=== PATIENT | female | born 1945 | race Caucasian/White ===

== ENCOUNTER 2016-06-07 05:19 | Inpatient (IN) | payer OTHER ==
[2016-05-29 14:55] LABS: % IMMATURE GRANULYOCYTES 0.3 % (0.0-1.1); ABSOLUTE IMMATURE GRANULOCYTES 0.02 10^3/uL (0.00-0.10); ADD DIFF? NO; ADD MORPH? NO; ADD SCAN? NO; ATYPICAL LYMPHOCYTE FLAG 0 (0-99); FRAGMENT RBC FLAG 20 (0-99); HEMATOCRIT 37.4 % (38.0-47.0); HEMOGLOBIN 11.5 g/dL (12.6-16.3); LEFT SHIFT FLG 0 (0-99); LIPEMIA HEMOLYSIS FLAG 80 (0-99); MEAN CELL HEMOGLOBIN 24.8 pg (27.9-34.1); MEAN CELL HEMOGLOBIN CONCENTR. 30.7 g/dL (32.4-36.7); MEAN CELL VOLUME 80.8 fL (81.5-99.8); MEAN PLATELET VOLUME 10.3 fL (8.7-11.7); PLATELET CLUMPS FLAG 0 (0-99); PLATELET COUNT 216 10^3/uL (150-400); RED BLOOD CELL COUNT 4.63 10^6/uL (4.18-5.33); RED CELL DISTRIBUTION WIDTH 19.8 % (11.5-15.2)
[2016-05-29 15:20] LABS: ANION GAP 12 mEq/L (8-16); CARBON DIOXIDE 24 mEq/l (22-31); CHLORIDE 108 mEq/L (97-110); CREATININE 0.8 mg/dL (0.6-1.0); GLOMERULAR FILTRATION RATE > 60; GLUCOSE 112 mg/dL (70-100); POTASSIUM 3.8 mEq/L (3.5-5.2); SODIUM 144 mEq/L (134-144)
[2016-06-07] MEDS ORDERED: ROPI/epiNEPH/KETOROLAC JOINT COCKTAIL IU ONE (06:00)
[2016-06-07] MEDS ORDERED: CHLORHEXIDINE GLUC HIBICLENS 118 ML BTL TP ONE (06:00)
[2016-06-07] MEDS ORDERED: TRANEXAMIC ACID 1,000 MG in NS 50 ML IRR ONE (06:00)
[2016-06-07] MEDS ORDERED: FAMOTIDINE 20 MG TAB PO ONE (06:00)
[2016-06-07] MEDS ORDERED: CEFAZOLIN 2 GM/DEXTR 100 ML IV ONE (06:00)
[2016-06-07] MEDS ORDERED: ACETAMINOPHEN 325 MG TAB PO ONE (06:00)
[2016-06-07] MEDS ORDERED: DEXAMETHASONE 4 MG/ML VIAL IVP ONE (06:00)
[2016-06-07] MEDS ORDERED: LIDOCAINE 1% 5 ML SDV ONE (06:27)
[2016-06-07] MEDS ORDERED: ceFAZolin 1 GM/5 ML SYR ONE (06:49)
[2016-06-07] MEDS ORDERED: LR 1,000 ML IV ONE (07:01)
[2016-06-07] MEDS ORDERED: LIDOCAINE 1% 5 ML SDV ID PRN (07:01)
[2016-06-07] MEDS ORDERED: MIDAZOLAM 2 MG/2 ML VIAL ONE (07:07)
[2016-06-07] MEDS ORDERED: PROPOFOL 200 MG/20 ML VIAL ONE (07:10)
[2016-06-07] MEDS ORDERED: LIDOCAINE 2% 5 ML SDV ONE (07:11)
[2016-06-07] MEDS ORDERED: ROCURONIUM 50 MG/5 ML VIAL ONE (07:11)
[2016-06-07] MEDS ORDERED: HYDROmorphONE/DILAUDID 2 MG/ML SYR ONE (07:13)
[2016-06-07] MEDS ORDERED: hydrALAZINE 20 MG/ML VIAL ONE (08:09)
[2016-06-07] MEDS ORDERED: epHEDrine SULFATE 10 MG/ML SYR ONE (08:29)
[2016-06-07] MEDS ORDERED: PHENYLEPHRINE HCL 100 MCG/ML SYR ONE (08:46)
[2016-06-07] MEDS ORDERED: fentaNYL 100 MCG/2 ML INJ ONE (09:40)
[2016-06-07] MEDS ORDERED: METOCLOPRAMIDE 10 MG/2 ML VIAL ONE (09:41)
[2016-06-07] MEDS ORDERED: PROMETHAZINE HCL 25 MG/ML INJ IVP PRN (09:42)
[2016-06-07] MEDS ORDERED: METOCLOPRAMIDE 10 MG/2 ML VIAL IVP PRN (09:42)
[2016-06-07] MEDS ORDERED: ONDANSETRON 4 MG/2 ML VIAL IVP PRN (09:42)
[2016-06-07] MEDS ORDERED: BISACODYL 10 MG SUPP PR PRN (09:42)
[2016-06-07] MEDS ORDERED: MAGNESIUM HYDROXIDE 30 ML UDCUP PO PRN (09:42)
[2016-06-07] MEDS ORDERED: TEMAZEPAM 15 MG CAP PO PRN (09:42)
[2016-06-07] MEDS ORDERED: LACTULOSE 20 GM/30 ML UDCUP PO PRN (09:42)
[2016-06-07] MEDS ORDERED: PROMETHAZINE HCL 25 MG SUPPR PR PRN (09:42)
[2016-06-07] MEDS ORDERED: DIPHENOXYLATE/ATROPINE LOMOTIL 1 TAB PO PRN (09:42)
[2016-06-07] MEDS ORDERED: PHARMACY PAIN CONSULT 1 EA MISC PRN (09:42)
[2016-06-07] MEDS ORDERED: HYDROmorphONE/DILAUDID 1 MG/ML SYR ONE ×4 (09:50→11:23)
[2016-06-07] MEDS ORDERED: ONDANSETRON 4 MG/2 ML VIAL ONE (09:51)
[2016-06-07] MEDS ORDERED: OXYCODONE/APAP 5/325 TAB PO PRN (09:57)
--- NOTE | 2016-06-07 10:28 | DX ---
AP pelvis, centered low. HISTORY: Status post right hip arthroplasty. COMPARISON STUDY: July 28, 2015. FINDINGS: Surgical features of bilateral total hip arthroplasties are identified without complication . The right hip arthroplasty is new from prior study. Femoral and acetabular components are well seat ed, without fracture. The patient's left hip arthroplasty is unchanged from prior study. IMPRESSION: 1. Status post bilateral total hip arthroplasties, new on the right, without hardware complication.
--- NOTE | 2016-06-07 10:32 | GOP ---
[f rep st] OPERATIVE REPORT DATE OF OPERATION: 06/07/2016 SURGEON: Waldemar Manzanares MD HAND CIG[employer] MAKING SUPERVISOR: Marissa Sweet. ANESTHESIA: General. PREOPERATIVE DIAGNOSIS: Osteoarthritis, right hip. POSTOPERATIVE DIAGNOSIS: Osteoarthritis, right hip. PROCEDURE PERFORMED: Right total hip arthroplasty. FINDINGS: DESCRIPTION OF PROCEDURE: The patient was taken to the operating room. After general anesthesia, pl aced in the left lateral decubitus position. Had her right hip and lower extremity prepped and drape d in normal sterile fashion. A posterolateral incision was made through dermal subcutaneous tissues. The IT band was split distally, extending up to the gluteal fascia. Retractors were put in positio n. The hip was internally rotated, bringing the external rotators under appropriate tension. The ex ternal rotators and piriformis tendon were taken down as a unit and tagged with a #2 Ethibond suture. The hip was dislocated. The femoral neck cut was then made approximately 1 cm above the lesser tro chanter using the oscillating saw. This head and neck segment was then removed. The acetabulum was then exposed. The fatty tissue in the cotyloid recess was excised. The posterior labral rim was exc ised. Reaming then commenced with a size 48 and extended up to a size 53. We elected to go with a T ritanium hemispherical cluster hole shell size 54, alpha code E. We 1st trialed the trial cup. This was then removed, and the Tritanium hemispherical cluster hole shell was then impacted into position . This was secured with a 6.5 mm diameter by 30 mm length Torx cancellous bone screw. This was brou ght through the previously drilled hole that was measured. We had good seeding in the cup. A trial cup liner was put in place. We then directed our attention to the proximal femur. A box osteotome w as used to remove bone from the greater trochanter. The tapered reamer was then placed down through the femoral canal. We then began reaming with a size 7 and extended up to a size 10. Broaching bega n with a size 8 and extended up to a size 10. The 10 trial broach was left in position. We placed a trial neck and head on the broach and relocated the hip. It was put through range of motion and fel t to be stable. Leg lengths were felt to be equal. The trials were then brought out. The real inse rt was opened. This was a 0 degree Trident X3 36 mm inner diameter, alpha code E polyethylene cup li ner. This was impacted into position. The real stem was then impacted into position. This was a se cure fit max, 132 degree neck angle hip stem, size 10, C taper, 35 mm neck length. The trunnion was then dried. A ceramic C taper femoral head, measuring 36 mm outer diameter +0 neck length was then i mpacted onto the trunnion. The real implants were then relocated and the hip was placed through rang e of motion and felt to be stable. Thorough lavage performed with normal saline. The piriformis and posterior hip capsule were then repaired through drill holes in the greater trochanter using #2 Ethi victoria suture. The IT band was then reapproximated and repaired with figure of eight #1 Vicryl sutures . The subcutaneous tissues were reapproximated and repaired with 2-0 Vicryl suture. The dermis was repaired with kermit. A sterile compression dressing applied, followed by KYLAH hose, followed by a h ip abduction pillow. The patient tolerated the procedure well and was transferred back to [facility] in stable condition. There were no operative complications. COMPLICATIONS: None. Copy requested to: Dr. Manzanares /[id number]/MODL
[2016-06-07] MEDS: ACETAMINOPHEN 325 MG TAB PO SCH ×3 (13:34→23:13)
[2016-06-07] MEDS: ceFAZolin 2 GM/DEXTROSE 100 ML IV SCH ×2 (14:04→21:00)
[2016-06-07] MEDS: NS 1,000 ML IV SCH ×2 (14:04→23:09)
[2016-06-07] MEDS: ONDANSETRON DISINTEGRATING 4 MG TAB PO PRN (16:27)
[2016-06-07] MEDS: oxyCODONE IR 5 MG TAB PO PRN ×2 (17:06→20:59)
[2016-06-07] MEDS: WARFARIN SODIUM 5 MG TAB PO SCH (17:06)
[2016-06-07] MEDS: metFORMIN HCL 500 MG TAB PO SCH (17:07)
[2016-06-07] MEDS: CYCLOBENZAPRINE 10 MG TAB PO PRN (20:59)
[2016-06-07] MEDS: SENNOSIDES/DOCUSATE SODIUM TAB PO SCH (20:59)
[2016-06-07] MEDS: FAMOTIDINE 20 MG TAB PO SCH (21:00)
[2016-06-07] MEDS: traMADol 50 MG TAB PO PRN (23:13)
[2016-06-07] MEDS: diphenhydrAMINE 25 MG CAP PO PRN (23:21)
[2016-06-08] MEDS: oxyCODONE IR 5 MG TAB PO PRN ×6 (01:22→20:47)
[2016-06-08] MEDS: ACETAMINOPHEN 325 MG TAB PO SCH ×4 (05:00→23:46)
[2016-06-08] MEDS: LEVOTHYROXINE 100 MCG TAB PO SCH (05:00)
[2016-06-08 05:51] LABS: HEMOGLOBIN 7.5 g/dL (12.6-16.3)
[2016-06-08 06:00] LABS: INR 1.24 (0.83-1.16); PROTIME(PATIENT) 15.6 SEC (12.0-15.0)
[2016-06-08] MEDS: NS 1,000 ML IV SCH (07:09)
[2016-06-08] MEDS: SENNOSIDES/DOCUSATE SODIUM TAB PO SCH ×2 (08:35→20:47)
[2016-06-08] MEDS: metFORMIN HCL 500 MG TAB PO SCH ×2 (08:36→17:55)
[2016-06-08] MEDS: FOLIC ACID 1 MG TAB PO SCH (08:36)
[2016-06-08] MEDS: FAMOTIDINE 20 MG TAB PO SCH ×2 (08:39→20:48)
--- NOTE | 2016-06-08 09:23 | SOAPPROG ---
SOAP Progress Note Assessment/Plan: Assessment/ Plan: 70y/o F s/p R ALISA POD#1 - 2 units PRB today - Continue pain management - Continue PT/OT - Continue hip precautions - Continue drain - Continue warfarin for VTE chemoprophylaxis - Continue TEDs and SCDs for mechanical prophylaxis - Monitor blood sugar and H&H 06/08/16 09:21 06/08/16 09:27 Subjective: Pt states she is doing okay and pain is a 6/10 in the R hip into the R groin area, worse when she tries to move. She has been OOB to use the bedside toilet. Pt was up with the nurse yesterday, but not PT due to nausea. Pt has been a little lightheaded when up and moving, but sleeping a lot in bed per nurse report. Pt denies fever, chills, chest pain, SOB, emesis, calf pain, numbness and tingling. Objective: VSS, afebrile, lying in bed. Glucose trending down. H&H low. Drain output 190mL Vital Signs Temp Pulse Resp BP Pulse Ox 36.8 C 76 16 152/74 H 97 06/08/16 07:33 06/08/16 07:33 06/08/16 07:33 06/08/16 07:33 06/08/16 07:33 Laboratory Results 06/08/16 05:27 05/29/16 14:15 06/07/16 06/08/16 06/09/16 05:59 05:59 05:59 Intake Total 4160 Output Total 1765 Balance 2395 PT 15.6 SEC (12.0-15.0) H 06/08/16 05:27 INR 1.24 (0.83-1.16) H 06/08/16 05:27 Physical Exam - Physical Exam General Appearance: alert, no apparent distress Peripheral Pulses: 2+: dorsalis-pedis (R), dorsalis-pedis (L) Skin: normal color, warm/dry, other (Dressing over R hip intact; drain intact) Extremities: normal inspection, normal capillary refill, No pedal edema, No calf tenderness, No swelling, No Angelika's sign Neuro/Psych: no motor/sensory deficits, alert, normal mood/affect ICD10 Worksheet Patient Problems: Problems Problem Status Diagnosed Chest pain Acute
[2016-06-08] MEDS: WARFARIN SODIUM 5 MG TAB PO SCH (16:43)
[2016-06-08] MEDS: diphenhydrAMINE 25 MG CAP PO PRN (20:50)
[2016-06-09] MEDS: oxyCODONE IR 5 MG TAB PO PRN ×4 (04:36→16:21)
[2016-06-09 04:50] LABS: INR 1.31 (0.83-1.16); PROTIME(PATIENT) 16.3 SEC (12.0-15.0)
[2016-06-09 04:59] LABS: HEMOGLOBIN 9.9 g/dL (12.6-16.3)
[2016-06-09] MEDS: ACETAMINOPHEN 325 MG TAB PO SCH ×4 (05:25→23:33)
[2016-06-09] MEDS: LEVOTHYROXINE 100 MCG TAB PO SCH (05:26)
[2016-06-09] MEDS: CYCLOBENZAPRINE 10 MG TAB PO PRN ×2 (05:37→12:52)
--- NOTE | 2016-06-09 07:44 | SOAPPROG ---
SOAP Progress Note Assessment/Plan: Assessment/ Plan: 70y/o F s/p R ALISA POD#2 - Monitor BP, consult in for hospitalist to help control - Continue pain management - Continue PT/OT - Continue hip precautions - Continue drain - Continue warfarin for VTE chemoprophylaxis - Continue TEDs and SCDs for mechanical prophylaxis - Monitor blood sugar and H&H 06/08/16 09:21 06/08/16 09:27 06/09/16 07:44 Subjective: Pt states she is doing okay, she is getting OOB with assistance. Pt states her pain is fairly well controlled. Pt denies fever, chills, lightheadedness, chest pain, SOB, N/V, abdominal pain, calf pain, numbness and tingling. Objective: Afebrile, pt sitting up in bed. Blood pressure readings have been high. Glucose stable. Drain output 310mL over the past 24 hours Vital Signs Temp Pulse Resp BP Pulse Ox 36.8 C 71 18 170/85 H 96 06/09/16 04:00 06/09/16 04:00 06/09/16 04:00 06/09/16 04:00 06/09/16 04:00 Laboratory Results 06/09/16 04:14 05/29/16 14:15 06/08/16 06/09/16 06/10/16 05:59 05:59 05:59 Intake Total 4160 1215 Output Total 1765 3010 Balance 2395 -1795 PT 16.3 SEC (12.0-15.0) H 06/09/16 04:14 INR 1.31 (0.83-1.16) H 06/09/16 04:14 Physical Exam - Physical Exam General Appearance: alert, no apparent distress Peripheral Pulses: 2+: dorsalis-pedis (R), dorsalis-pedis (L) Skin: normal color, warm/dry, other (Incision site c/d/i, no hematoma; drain intact) Extremities: normal capillary refill, No pedal edema, No calf tenderness, No swelling, No Angelika's sign Neuro/Psych: no motor/sensory deficits, alert, normal mood/affect ICD10 Worksheet Patient Problems: Problems Problem Status Diagnosed Chronic Disease Mgmt/Transitional Care Acute Chest pain Acute
[2016-06-09] MEDS: metFORMIN HCL 500 MG TAB PO SCH ×2 (08:32→18:40)
[2016-06-09] MEDS: SENNOSIDES/DOCUSATE SODIUM TAB PO SCH ×2 (08:32→20:37)
[2016-06-09] MEDS: FAMOTIDINE 20 MG TAB PO SCH ×2 (08:32→20:37)
[2016-06-09] MEDS: FOLIC ACID 1 MG TAB PO SCH (08:32)
[2016-06-09] MEDS ORDERED: hydrALAZINE 10 MG TAB PO PRN (12:23)
[2016-06-09 13:19] LABS: ANION GAP 7 mEq/L (8-16); CALCIUM 8.6 mg/dL (8.5-10.4); CARBON DIOXIDE 26 mEq/l (22-31); CHLORIDE 106 mEq/L (97-110); CREATININE 0.7 mg/dL (0.6-1.0); GLOMERULAR FILTRATION RATE > 60; GLUCOSE 81 mg/dL (70-100); POTASSIUM 3.6 mEq/L (3.5-5.2); SODIUM 139 mEq/L (134-144)
--- NOTE | 2016-06-09 14:59 | ECHO ---
[id number] + + [address] : : [place] [address] : : [phone] + + Adult Echocardiographic Report + ------+ :Name: PAPO PATEL LStudy Date: 06/09/2016 01:43 PM : : Hospital Admission Number: [id number] Locatio n: 350: :: 1945 Gender: Female Height: 66 in : :Age: 70 yrs Race: WH Weight: 201 lb : :Reason For Study: Eval LV Fx : : BSA: 2.0 meters 2 : :History: Post hip replacement, New onset Hypertension : + ------+ MMode/2D Measurements & Calculations IVSd: 1.4 cm LVIDd: 5.5 cm FS: 44.0 % Ao root diam: 3.6 cm LVPWd: 1.3 cm LVIDs: 3.1 cm EDV(Teich): 147.9 ml ACS: 1.8 cm ESV(Teich): 37.5 ml EF(Teich): 74.6 % Normal Measurement Values: + + :LVIDd (3.5-5.7cm) IVSd (0.6-1.1cm) LVPWd (0.6-1.1cm) Aortic Root (2.0-3.7cm)Left Atrium (1.5-4.0cm): :LV Vol(d) (76-115ml) LV Vol(s) (29-48ml) Ejec Fraction (50-65%)PV Kareem (0.6- 1.2m/s) TV Kareem (0.4-1.0m/s) : :MV E Kareem (0.8-1.0m/s)MV A Kareem (0.3-1.0m/s)LVOT Kareem (0.7-1.2m/s) Asc Ao Kareem ( 0.9-1.8m/s) : + + Doppler Measurements & Calculations MV E max kareem: Ao V2 max: AI max kareem: LV V1 max: 50.3 cm/sec 154.7 cm/sec 306.8 cm/sec 100.7 cm/sec MV A max kareem: Ao max P.6 mmHgAI max P.7 mmHgLV V1 max P.1 cm/sec Ao mean PG: AI dec slope: 4.1 mmHg MV E/A: 0.72 25.7 mmHg 225.8 cm/sec2 Ao V2 mean: AI P1/2t: 397.9 msec 246.0 cm/sec Ao V2 VTI: 142.0 cm PA V2 max: PI end-d kareem: 77.4 cm/sec 105.9 cm/sec PA max P.4 mmHg Left Ventricle The left ventricle is normal in size. There is normal left ventricular wall thickness. The left ventricular ejection fraction is normal. There is Doppler evidence for diastolic dysfunction. Ejection Fraction = 75%. The left ventricular wall motion is normal. Right Ventricle The right ventricle is normal in size and function. Atria The left atrial size is normal. Right atrial size is normal. Mitral Valve The mitral valve is normal in structure and function. There is no evidence of mitral valve prolapse. There is no mitral valve stenosis. There is trace mitral regurgitation. Tricuspid Valve Normal tricuspid valve. No tricuspid regurgitation. Aortic Valve The aortic valve is normal in structure and function. The aortic valve is trileaflet. There is no aortic stenosis. Mild aortic regurgitation. Pulmonic Valve The pulmonic valve is normal in structure and function. There is no pulmonic valvular regurgitation. Great Vessels The aortic root is normal size. Pericardium/Pleural There is no pericardial effusion. Conclusion A complete two-dimensional transthoracic echocardiogram was performed (2D, M-mode, Doppler and color flow Doppler). The left ventricular ejection fraction is normal. There is Doppler evidence for diastolic dysfunction. Ejection Fraction = 75%. The left ventricular wall motion is normal. The left atrial size is normal. The mitral valve is normal in structure and function. There is trace mitral regurgitation. The aortic valve is normal in structure and function. The aortic valve is trileaflet. Mild aortic regurgitation. Final Reading Physician: Catherine Amin signed on 06/09/2016 02:58 PM Ordering Physician: Destiny Torres Performed By: Nilesh Romero, CS
--- NOTE | 2016-06-09 15:26 | GCON ---
[f rep st] CONSULTATION MEDICINE CONSULTATION DATE OF CONSULTATION: 06/09/2016 CHIEF COMPLAINT: Hypertension. HISTORY OF PRESENT ILLNESS: The patient is a 70-year-old female with a history of recently diagnosed hypertension, rheumatoid and osteoarthritis, diabetes and hypothyroidism, who was admitted to the [facility] to undergo elective right total hip arthroplasty. She is postop day #2 and has had a relative ly uneventful postoperative course. However, she has had persistently elevated blood pressures in th e 170s systolic on her normal dose of amlodipine at 2.5 mg daily. A Medicine consult was requested t o assist in helping to manage her elevated blood pressures. The patient denies chest pain, shortness of breath, headaches, vision changes, or heart palpitations. She states she was started on amlodipi ne approximately 1 month ago by her primary care physician. She states she had a left total hip repl acement done approximately 6 months ago and she recalls having a period of elevated blood pressures p ostoperatively during that time. I also note preoperatively her blood pressures were completely norm al in the 110s to 120s over 60s. PAST MEDICAL HISTORY: 1. Rheumatoid arthritis. 2. Osteoarthritis. 3. Hypertension. 4. Tobacco abuse. 5. Diabetes. 6. Hypothyroidism. 7. Asthma. 8. Obstructive sleep apnea. PAST SURGICAL HISTORY: 1. Left total hip arthroplasty July 2015. 2. Right total hip arthroplasty June 07, 2015. 3. Surgical repair of an ankle fracture. 4. Cholecystectomy. 5. Appendectomy. 6. Tonsillectomy. 7. Tubal ligation. 8. Cataract surgery. SOCIAL HISTORY: The patient is . Her is at the bedside. She has a [id number] smok ing history. Denies current tobacco, alcohol, or drug use. She lives independently at home. FAMILY HISTORY: Her father had coronary artery disease and had an LA at age 62 which raises the susp icion for premature heart disease in her father. MEDICATIONS: Please see [facility] for completed, updated outpatient medication list. ALLERGIES: She has no known drug allergies. REVIEW OF SYSTEMS: A 10-point review of systems was performed and was negative, except as per HPI. OBJECTIVE: VITAL SIGNS: Temperature is 36.8, current blood pressure 151/83, heart rate 64, respirat ory rate 16, she is 98% on 1 L oxygen via nasal cannula. GENERAL: The patient is awake, alert, orie nted, in no acute distress. HEENT: Head is atraumatic, normocephalic. Pupils equal, round and reac tive to light. Extraocular muscles are intact. Oropharynx is clear. Mucous members are moist. NECK : Supple. There is no JVD. HEART: Regular rate without murmur. LUNGS: Clear to auscultation terrance aterally. ABDOMEN: Soft, nontender. Normoactive bowel sounds. EXTREMITIES: Her right lower extre mity has an intact dressing. A GENEVIEVE drain is noted with decreasing output this afternoon. EXTREMITIES : Otherwise warm, well perfused with trace lower extremity edema. LABORATORY DATA: Her hemoglobin this morning is 9.9, hematocrit 31. This is status post 4 units of packed red blood cells and 2 units of FFP. A basic metabolic panel shows normal electrolytes, normal kidney function. ASSESSMENT AND PLAN: The patient is a 70-year-old female who was admitted to the hospital for an chase ctive right total hip arthroplasty and a Medicine consult was requested for assistance with blood pre ssure management. 1. Right total hip arthroplasty, postoperative day #2. This is managed by the orthopedic Surgery te am. She seems to be advancing her care as expected. Continue pain control and PT/OT. 2. Hypertension. As above, this is new postoperatively and may be partially driven by pain and anxi ety. I gave her an extra dose of Norvasc at noon and her repeat blood pressure is in the 150s over 8 0 range. Will also add p.r.n. hydralazine for systolic blood pressure greater than 60, as we up-titr ate her Norvasc. Will double her dose for tomorrow morning, though I think we should be cautious abo ut not escalating her antihypertensive doses too quickly to avoid hypotension given her normotensive status preoperatively. An echocardiogram was performed to evaluate for left ventricular hypertrophy. She can likely be discharged on a higher dose of Norvasc with close outpatient followup with her [facility] care physician. I did discuss with the patient a low-salt diet. 3. Acute blood loss anemia. Per the Surgery Team, she has been transfused 4 units of packed red blo od cells and 2 units of FFP. Her hemoglobin this morning is 9.9. She is hemodynamically stable. 4. Diabetes mellitus. The patient has been continued on her metformin which seems appropriate given her normal renal function. Her blood sugars have been in the 80-100 range and this is currently wel l managed. 5. Hypothyroidism. She is continued on her levothyroxine. 6. Deep venous thrombosis prophylaxis. Warfarin per the Surgery Team. CODE STATUS: The patient is full code. DISPOSITION: Continue inpatient status. The patient will likely go to SNF rehab in the next 1-2 days. /[id number]/MODL
[2016-06-09] MEDS: WARFARIN SODIUM 5 MG TAB PO SCH (16:21)
[2016-06-09] MEDS: diphenhydrAMINE 25 MG CAP PO PRN (20:54)
[2016-06-10] MEDS: oxyCODONE IR 5 MG TAB PO PRN ×3 (04:44→13:29)
[2016-06-10] MEDS: ACETAMINOPHEN 325 MG TAB PO SCH ×4 (04:45→23:43)
[2016-06-10] MEDS: LEVOTHYROXINE 100 MCG TAB PO SCH (04:45)
[2016-06-10 05:01] LABS: HEMATOCRIT 33.5 % (38.0-47.0); HEMOGLOBIN 10.6 g/dL (12.6-16.3)
[2016-06-10 05:14] LABS: INR 1.18 (0.83-1.16)
[2016-06-10] MEDS: amLODIPine BESYLATE 5 MG TAB PO SCH (08:59)
[2016-06-10] MEDS: SENNOSIDES/DOCUSATE SODIUM TAB PO SCH ×2 (10:41→20:17)
[2016-06-10] MEDS: metFORMIN HCL 500 MG TAB PO SCH ×2 (10:41→18:19)
[2016-06-10] MEDS: FAMOTIDINE 20 MG TAB PO SCH ×2 (10:42→20:17)
[2016-06-10] MEDS: FOLIC ACID 1 MG TAB PO SCH (10:43)
--- NOTE | 2016-06-10 11:36 | HOSPPROG ---
Hospitalist Progress Note Assessment/Plan: S/P THR POD #3 - management per ortho team Hypertension - she was normotensive pre-op. Post-op BP's at goal with increase in Norvasc. There may be some pain/anxiety component. Echo nl. continue Norvasc and prn Hydralazine for sbp >160 Blood loss anemia - improved s/p transfusion per ortho DM - BG's well controlled on metformin. Hypothyroid - cont synthroid DVT PPLX - per ortho Full code Dispo - possibly 1-2 days Subjective: Pt is distressed that she may require another surgery, though I reassured her that doesn't seem likely today. No fevers/chills. Pain is controlled. No CP or SOb. Objective: Vital Signs Temp Pulse Resp BP Pulse Ox 36.8 C 66 16 134/75 H 95 06/10/16 11:23 06/10/16 11:23 06/10/16 11:23 06/10/16 11:23 06/10/16 11:23 Laboratory Results 06/10/16 04:31 06/09/16 12:43 06/09/16 06/10/16 06/11/16 05:59 05:59 05:59 Intake Total 1215 400 Output Total 3010 1540 Balance -1795 -1140 PT 15.0 SEC (12.0-15.0) 06/10/16 04:31 INR 1.18 (0.83-1.16) H 06/10/16 04:31 - Physical Exam Constitutional: no apparent distress Eyes: PERRL Ears, Nose, Mouth, Throat: moist mucous membranes Cardiovascular: regular rate and rhythym Respiratory: no respiratory distress, clear to auscultation Gastrointestinal: normoactive bowel sounds, soft, non-tender abdomen Skin: warm Musculoskeletal: other (RLE dressing c/d/i, ext warm, well perfused) Neurologic: AAOx3 Psychiatric: interacting appropriately ICD10 Worksheet Patient Problems: Problems Problem Status Diagnosed Chronic Disease Mgmt/Transitional Care Acute Chest pain Acute
--- NOTE | 2016-06-10 12:36 | SOAPPROG ---
SOAP Progress Note Assessment/Plan: Assessment: POD 3 s/p R ALISA with elevated post-op bleeding. 700cc total out from drain since surgery. She appears to be normalizing o/n. Peak output 1.20.17, however, now decreasing. Plan: Continue drain in order to monitor output and determine if any further bleeding concerns exist. Dsg changes prn. Will d/c drain tomorrow on rounds if output continues to decline. Reg diet now, NPO p MN. PHP's, PT/OT, WBAT, VTE proph with BLE TEDs/SCDs at all times possible while proph Warfarin d/c'd. Per sign out, Dr Manzanares stopped warfarin, however, current orders had no hold or d/c. No warfarin today, ordered to resume tomorrow 1.22.17 per standard prophylactic dosing routine. I've spent considerable time re-assuring Virginie that her condition is improving and that she should not be too sad. She appears in better spirits by end of my visit. Dispo pending drain output. Appreciate med consult and assist with controlling BP. Subjective: Decreasing drain output o/n. Pain well controlled. No other major MARIAA. Patient very anxious and emotional about her hip and potential for re- exploration. Objective: Vital Signs Temp Pulse Resp BP Pulse Ox 36.8 C 66 16 134/75 H 95 06/10/16 11:23 06/10/16 11:23 06/10/16 11:23 06/10/16 11:23 06/10/16 11:23 Laboratory Results 06/10/16 04:31 06/09/16 12:43 06/09/16 06/10/16 06/11/16 05:59 05:59 05:59 Intake Total 1215 400 Output Total 3010 1540 Balance -1795 -1140 PT 15.0 SEC (12.0-15.0) 06/10/16 04:31 INR 1.18 (0.83-1.16) H 06/10/16 04:31 R thigh soft, wound clean/dry after dsg change. Prior dsg was falling off. No sign of significant hematoma. +TTP diffusely. BLE's w/o calf TTP, no sig edema , neg Angelika's and DNVI. ICD10 Worksheet Patient Problems: Problems Problem Status Diagnosed Chronic Disease Mgmt/Transitional Care Acute Chest pain Acute
[2016-06-10] MEDS: CYCLOBENZAPRINE 10 MG TAB PO PRN (20:16)
[2016-06-10] MEDS: POLYETHYLENE GLYCOL 3350 17 GM PKT PO PRN (20:17)
[2016-06-11] MEDS: ACETAMINOPHEN 325 MG TAB PO SCH ×4 (05:39→23:18)
[2016-06-11] MEDS: LEVOTHYROXINE 100 MCG TAB PO SCH (05:39)
[2016-06-11] MEDS: CYCLOBENZAPRINE 10 MG TAB PO PRN ×2 (05:41→12:40)
[2016-06-11] MEDS: traMADol 50 MG TAB PO PRN ×2 (08:42→12:40)
[2016-06-11] MEDS: amLODIPine BESYLATE 5 MG TAB PO SCH (08:44)
[2016-06-11] MEDS: SENNOSIDES/DOCUSATE SODIUM TAB PO SCH ×2 (08:48→21:14)
[2016-06-11] MEDS: metFORMIN HCL 500 MG TAB PO SCH ×2 (08:48→17:39)
[2016-06-11] MEDS: FAMOTIDINE 20 MG TAB PO SCH ×3 (08:48→21:14)
[2016-06-11] MEDS: FOLIC ACID 1 MG TAB PO SCH (08:49)
--- NOTE | 2016-06-11 10:25 | SOAPPROG ---
SOAP Progress Note Assessment/Plan: Assessment: POD 4 s/p R ALISA with elevated post-op bleeding, now appears stable though drain auto-d/c'd by pt yesterday. Plan: Dsg changes prn. Reg diet, no sign of significant hematoma requiring takeback to OR. PHP's, PT/OT, WBAT, VTE proph with BLE TEDs/SCDs at all times possible Warfarin scheduled to restart today. Doppler US ordered 2/2 new LLE findings concerning for VTE. Dispo pending Doppler - accepted to [facility]. Appreciate med consult assist. 06/11/16 10:21 Subjective: Pt pulled drain yesterday, and PIV lost/left out. Pain well controlled. PT/OT pending this AM. Pt states she has been able to get up/OOB for bathroom, walk in room. Objective: Vital Signs Temp Pulse Resp BP Pulse Ox 36.8 C 91 17 141/80 H 96 06/11/16 07:40 06/11/16 07:40 06/11/16 07:40 06/11/16 08:44 06/11/16 07:40 Laboratory Results 06/10/16 04:31 06/09/16 12:43 06/10/16 06/11/16 06/12/16 05:59 05:59 05:59 Intake Total 400 450 Output Total 1540 65 Balance -1140 385 PT 15.0 SEC (12.0-15.0) 06/10/16 04:31 INR 1.18 (0.83-1.16) H 06/10/16 04:31 R thigh soft w/o palp hematoma with ecchymosis, edema, SS staining of dressings over incision. Drain dsgs without significant saturation or other concerns for continued bleeding. L calf/pop fossa with sig TTP asymmetric from RLE, equiv Angelika's, +pre-tib edema; negative on RLE. DNVI BLE's. Drain: 190cc prior to d/c by pt. ICD10 Worksheet Patient Problems: Problems Problem Status Diagnosed Chronic Disease Mgmt/Transitional Care Acute Chest pain Acute
--- NOTE | 2016-06-11 13:04 | US ---
BILATERAL LOWER EXTREMITY DUPLEX DOPPLER INDICATION: Hip surgery four days ago. Bilateral lower extremity swelling and pain. TECHNIQUE: Bilateral lower extremity duplex Doppler is performed. FINDINGS: The right leg is negative for DVT or superficial thrombophlebitis. Specifically, the visual ized common femoral, saphenous, popliteal, and calf veins are patent. In the left leg, two peroneal veins show very short segment DVT with the veins being noncompressible without color flow. They do not extend into the popliteal vein. The rest of the popliteal, femoral, a nd SFV are patent. IMPRESSIONS: 1. Normal right leg. 2. Short segment peroneal vein clot in the calf consistent with early DVT in the left leg. Popliteal vein is not involved.
[2016-06-11] MEDS ORDERED: HEPARIN 10,000 UNIT/10 ML MDV IVP PRN (13:46)
[2016-06-11] MEDS ORDERED: HEPARIN 10,000 UNIT/10 ML MDV IVP ONE (13:46)
[2016-06-11] MEDS ORDERED: HEPARIN/DEXTROSE 500 ML IV SCH (14:00)
--- NOTE | 2016-06-11 14:11 | HOSPPROG ---
Hospitalist Progress Note Assessment/Plan: S/P THR POD #3 - management per ortho team Hypertension - she was normotensive pre-op. Post-op BP's at goal with increase in Norvasc. There may be some pain/anxiety component. Echo nl. continue Norvasc and prn Hydralazine for sbp >160 LLE DVT - non-operative leg. Will start heparin drip for now given recent aneudy- operative bleeding concerns. Likely transition to Pradaxa (now has reversal agent) at dc if no bleeding on Heparin. Discussed with heme. Pt agreeable. Blood loss anemia - improved s/p transfusion per ortho DM - BG's well controlled on metformin. Hypothyroid - cont synthroid DVT PPLX - per ortho Full code Dispo - possibly 1-2 days Subjective: Pt feels okay. Denies LLE pain. No CP or SOB. No fevers. Tolerating po well. Objective: Vital Signs Temp Pulse Resp BP Pulse Ox 36.8 C 91 17 141/80 H 96 06/11/16 07:40 06/11/16 07:40 06/11/16 07:40 06/11/16 08:44 06/11/16 07:40 Laboratory Results 06/10/16 04:31 06/09/16 12:43 06/10/16 06/11/16 06/12/16 05:59 05:59 05:59 Intake Total 400 450 Output Total 1540 65 Balance -1140 385 PT 15.0 SEC (12.0-15.0) 06/10/16 04:31 INR 1.18 (0.83-1.16) H 06/10/16 04:31 - Physical Exam Constitutional: no apparent distress Eyes: PERRL Ears, Nose, Mouth, Throat: moist mucous membranes Cardiovascular: regular rate and rhythym Respiratory: no respiratory distress Gastrointestinal: normoactive bowel sounds, soft, non-tender abdomen Skin: warm Musculoskeletal: other (RLE hip dressing c/d/i. b/l LE edema R>L) Neurologic: AAOx3 Psychiatric: interacting appropriately ICD10 Worksheet Patient Problems: Problems Problem Status Diagnosed Chronic Disease Mgmt/Transitional Care Acute Chest pain Acute
[2016-06-11 14:56] LABS: % IMMATURE GRANULYOCYTES 0.6 % (0.0-1.1); ABSOLUTE IMMATURE GRANULOCYTES 0.04 10^3/uL (0.00-0.10); ADD DIFF? NO; ADD MORPH? NO; ADD SCAN? NO; APTT 23.4 SEC (23.0-38.0); ATYPICAL LYMPHOCYTE FLAG 0 (0-99); FRAGMENT RBC FLAG 20 (0-99); HEMATOCRIT 36.2 % (38.0-47.0); HEMOGLOBIN 11.6 g/dL (12.6-16.3); INR 1.09 (0.83-1.16); LEFT SHIFT FLG 0 (0-99); LIPEMIA HEMOLYSIS FLAG 80 (0-99); MEAN CELL HEMOGLOBIN 26.5 pg (27.9-34.1); MEAN CELL VOLUME 82.6 fL (81.5-99.8); MEAN PLATELET VOLUME 10.2 fL (8.7-11.7); PLATELET CLUMPS FLAG 0 (0-99); PLATELET COUNT 175 10^3/uL (150-400); RED BLOOD CELL COUNT 4.38 10^6/uL (4.18-5.33); RED CELL DISTRIBUTION WIDTH 19.8 % (11.5-15.2)
[2016-06-11] MEDS ORDERED: WARFARIN SODIUM 5 MG TAB PO SCH (16:00)
[2016-06-11] MEDS: POLYETHYLENE GLYCOL 3350 17 GM PKT PO PRN (21:14)
[2016-06-12] MEDS: oxyCODONE IR 5 MG TAB PO PRN (00:58)
[2016-06-12] MEDS: ACETAMINOPHEN 325 MG TAB PO SCH ×2 (05:31→12:13)
[2016-06-12] MEDS: LEVOTHYROXINE 100 MCG TAB PO SCH (05:31)
[2016-06-12 07:54] VITALS: PULSE 78; RESP 16; TEMP 97.4; O2SAT 94
--- NOTE | 2016-06-12 07:58 | SOAPPROG ---
SOAP Progress Note Assessment/Plan: Assessment: S/P Rt Total hip: Would get PT to see again today and mobilize Short segment peroneal DVT Lt leg.On Heparin and will start pradaxa Plan: Once on pradaxa, may DC to SNF. Ortho to Follow-up as outpatient in one week. 06/12/16 07:55 Subjective: No complaints of pain. Objective: Vital Signs Temp Pulse Resp BP Pulse Ox 36.3 C 78 16 143/71 H 94 06/12/16 07:53 06/12/16 07:53 06/12/16 07:53 06/12/16 07:53 06/12/16 07:53 Laboratory Results 06/11/16 14:37 06/09/16 12:43 06/11/16 06/12/16 06/13/16 05:59 05:59 05:59 Intake Total 450 1600 Output Total 65 1100 Balance 385 500 PT 14.0 SEC (12.0-15.0) 06/11/16 14:37 INR 1.09 (0.83-1.16) 06/11/16 14:37 No evidence for continued bleeding in Rt hip. Dressing had mild serous drainage and was changed. Calves and thighs are soft. tenderness in L calf improved. ICD10 Worksheet Patient Problems: Problems Problem Status Diagnosed Chronic Disease Mgmt/Transitional Care Acute Chest pain Acute
[2016-06-12] MEDS ORDERED: amLODIPine BESYLATE 5 MG TAB PO SCH (09:00)
--- NOTE | 2016-06-12 09:02 | HOSPPROG ---
Hospitalist Progress Note Assessment/Plan: S/P THR POD #3 - management per ortho team Hypertension - BP's better controlled. Continue current dose of Norvasc at d/c. LLE DVT - non-operative leg. No bleeding on heparin drip, started yesterday. Will transition to SC Lovenox for 5 days, then change to Pradaxa 150 mg BID. This was a provoked DVT, will need tx for 3 months. Blood loss anemia - improved s/p transfusion per ortho DM - BG's well controlled on metformin. Cont on dc. Hypothyroid - cont synthroid DVT PPLX - per ortho Full code Dispo - SNF today. Subjective: Pt doing well, going to SNF today. Objective: Vital Signs Temp Pulse Resp BP Pulse Ox 36.3 C 78 16 143/71 H 94 06/12/16 07:53 06/12/16 07:53 06/12/16 07:53 06/12/16 07:53 06/12/16 07:53 Laboratory Results 06/11/16 14:37 06/09/16 12:43 06/11/16 06/12/16 06/13/16 05:59 05:59 05:59 Intake Total 450 1600 Output Total 65 1100 Balance 385 500 PT 14.0 SEC (12.0-15.0) 06/11/16 14:37 INR 1.09 (0.83-1.16) 06/11/16 14:37 - Physical Exam Constitutional: no apparent distress Eyes: PERRL Ears, Nose, Mouth, Throat: moist mucous membranes Cardiovascular: regular rate and rhythym Respiratory: no respiratory distress Gastrointestinal: soft, non-tender abdomen Skin: warm Neurologic: AAOx3 Psychiatric: interacting appropriately ICD10 Worksheet Patient Problems: Problems Problem Status Diagnosed Chronic Disease Mgmt/Transitional Care Acute Chest pain Acute
[2016-06-12] MEDS ORDERED: ENOXAPARIN 100 MG/ML SYR SC SCH ×2 (09:30→21:00)
[2016-06-12] MEDS ORDERED: ENOXAPARIN 80 MG/0.8 ML SYR SC SCH (09:30)
[2016-06-12] MEDS: metFORMIN HCL 500 MG TAB PO SCH (09:57)
[2016-06-12] MEDS: FOLIC ACID 1 MG TAB PO SCH (09:57)
[2016-06-12] MEDS: FAMOTIDINE 20 MG TAB PO SCH (09:59)
[2016-06-12] MEDS: SENNOSIDES/DOCUSATE SODIUM TAB PO SCH (09:59)
[2016-06-12 10:05] VITALS: BP 140/81
--- NOTE | 2016-06-12 10:57 | PDIAF ---
- Diagnosis Diagnosis: Right hip osteoarthritis Code Status: Full Code - Medication Management Discharge Medications: Medications to Continue on Transfer Folic Acid [Folic Acid 1 MG (*)] 3 mg PO DAILY 11/27/13 [Last Taken 06/04/16] Herbals/Supplements -Info Only 1 ea PO DAILY 11/27/13 [Last Taken 05/31/16] Methotrexate Sodium [Methotrexate] 7.5 mg PO MONTENEGRO@11/27/13 [Last Taken 06/04] Pantoprazole Sodium [Protonix 40mg (*)] 40 mg PO DAILY 11/27/13 [Last Taken ] Ranitidine HCl 150 mg PO BID 11/27/13 [Last Taken 06/06/16] metFORMIN HCL [Glucophage 500 mg (*)] 500 mg PO BIDMEAL 11/27/13 [Last Taken ] Docusate Sodium [Colace 100 MG (*)] 300 mg PO DAILY@18 05/10/16 [Last Taken ] Gabapentin [Neurontin 300 MG (*)] 600 mg PO HS 05/10/16 [Last Taken 06/05/16] Levothyroxine [Synthroid 100 mcg (*)] 100 mcg PO DAILY06 05/10/16 [Last Taken ] Levothyroxine [Synthroid 50 mcg (*)] 50 mcg PO MONTENEGRO@06 05/10/16 [Last Taken ] celeCOXIB [Celebrex (*)] 200 mg PO DAILY PRN 05/10/16 [Last Taken 06/04/16] oxyCODONE/APAP 5/325 [Percocet 5/325 (*)] 1 tab PO DAILY PRN 05/10/16 [Last Taken 05/31/16] traMADol [Ultram 50 mg (*)] 50 mg PO DAILY PRN 05/10/16 [Last Taken 06/03/16] Acetaminophen [Tylenol 325mg (*)] 650 mg PO Q6HRS #0 tab 06/12/16 [Last Taken Unknown] Cyclobenzaprine [Flexeril 10 MG (*)] 10 mg PO Q8HRS PRN #0 tab 06/12/16 [Last Taken Unknown] Dabigatran Etexilate Mesyl [Pradaxa 150 MG (*)] 150 mg PO BID #60 cap 06/12/16 [ Last Taken Unknown] Enoxaparin [Lovenox 80 MG (*)] 90 mg SC BID #10 syr 06/12/16 [Last Taken Unknown ] Famotidine [Pepcid 20 MG (*)] 20 mg PO BID #0 tab 06/12/16 [Last Taken Unknown] Ondansetron Odt [Zofran Odt 4 mg (*)] 4 mg PO Q4HRS PRN #0 tab 06/12/16 [Last Taken Unknown] Polyethylene Glycol 3350 [Miralax 17 gm (*)] 17 gm PO DAILY PRN #0 pkt 06/12/16 [Last Taken Unknown] Sennosides/Docusate Sodium [Senokot-S] 1 - 2 tab PO BID #0 tab 06/12/16 [Last Taken Unknown] amLODIPine BESYLATE [Norvasc 5 mg (*)] 7.5 mg PO DAILY #45 tab 06/12/16 [Last Taken Unknown] oxyCODONE IR [Oxycodone Ir (*)] 5 - 10 mg PO Q3HRS #40 tab 06/12/16 [Last Taken Unknown] Discharge Medications: Refer to the Discharge Home Medication list for PRN reason. - Orders Services needed: Physical Therapy, Occupational Therapy Diet Recommendation: no restrictions on diet Diet Texture: Regular Texture Diet José Luis Stockings Discontinue Date: 2 weeks postoperatively Wound Care Instructions: Change dressing as needed Sutures/[employer] Site: To be removed at first post-operative appointment with Dr. Manzanares Activity/Weight Bearing Restrictions: Hip precautions right lower extremity; weight bearing as tolerated bilateral lower legs - Follow Up Care Current Providers and Referrals: Lazara Trujillo MD [Primary Care Provider] - Waldemar Manzanares MD [Medical Doctor] - (Follow-up in office 10-14 days postoperatively, call the office to schedule this appointment.)
--- NOTE | 2016-06-12 11:03 | PDDCSUM ---
Discharge Summary Discharge Summary: 70y/o F admitted to the hospital after undergoing a R ALISA for observation. Pt was given IV Ancef for antibiotic prophylaxis. Pt was started on Warfarin for VTE chemoprophylaxis and TEDs/SCDs were in place for mechanical prophylaxis. Post-operatively patient had a decreased H&H requiring 2 units PRBCs, and warfarin was on hold due to increased drain output. H&H improved and stable. Pain well controlled. Pt was also hypertensive and the hospitalist team was consulted to manage her care. Pt developed a LLE DVT on POD # 4 and started on a heparin drip. Pt will continue Pradaxa as an outpatient for 3 weeks. Pt was evaluated by PT/OT. Pt was discharged to a SNF, WBAT BLE, hip precautions RLE. Hospital course was otherwise uneventful.
[2016-06-12] MEDS: ONDANSETRON DISINTEGRATING 4 MG TAB PO PRN (12:13)
== END 2016-06-12 14:29 | DRG 470 ==
LOC: F3N 05:19
PROVIDERS: ADMIT Orthopaedic Surgery Sports Medicine; ATTEND Orthopaedic Surgery Sports Medicine
PROC: 0SR904Z Replacement of Right Hip Joint with Ceramic on Polyethylene Synthetic Substitute, Open Approach (ICD-10-PCS; principal; 2016-06-07 07:15)
PROC: 30233N1 Transfusion of Nonautologous Red Blood Cells into Peripheral Vein, Percutaneous Approach (ICD-10-PCS; 2016-06-08)
DX: M16.11 Unilateral primary osteoarthritis, right hip (principal); D62 Acute posthemorrhagic anemia; I10 Essential (primary) hypertension; M06.9 Rheumatoid arthritis, unspecified; E11.9 Type 2 diabetes mellitus without complications; E03.9 Hypothyroidism, unspecified; G47.33 Obstructive sleep apnea (adult) (pediatric); J45.909 Unspecified asthma, uncomplicated; E78.5 Hyperlipidemia, unspecified; Z96.642 Presence of left artificial hip joint; Z79.84 Long term (current) use of oral hypoglycemic drugs; Z72.0 Tobacco use
CPT/HCPCS: 85520-90; 97116-GP; 97161-GP; 97165-GO; 97530-GO; 97530-GP; 97535-GO; C1713; G8978-GP-CL; G8979-GP-CJ; G8987-GO-CK; G8988-GO-CJ; J0171; J0360; J0690; J1100; J1170; J1644; J1650; J1885; J2250; J2370; J2405; J2704; J2765; J2795; J3010; P9016

== ENCOUNTER → 2016-07-24 | Outpatient (CLI) | payer OTHER | LOC: CIMAGING 09:48 | DX: Z12.31 Encounter for screening mammogram for malignant neoplasm of breast (principal); Z80.3 Family history of malignant neoplasm of breast | CPT/HCPCS: G0202 ==

== ENCOUNTER 2017-01-18 10:48 | Emergency (ER) | payer OTHER ==
[2017-01-18 10:59] VITALS: TEMP 97.6
--- NOTE | 2017-01-18 11:46 | EDPHY ---
H & P Time Seen by Provider: 01/18/17 10:59 HPI/ROS: HPI Left ankle and calf pain. Atraumatic. 71-year-old female by private vehicle. She complains of pain to the distal aspect of the left medial calf radiating into the left ankle, described as an intermittent shooting pain. No history of fall or other traumatic event. Denies any significant swelling or altered sensation. No acute back pain. She has a prior history of a DVT in the right lower extremity after a hip surgery. She was on Pradaxa but is no longer on this. She has not been on Pradaxa since May. She is here because she is concerned about a DVT to her left lower extremity. ROS: Constitutional: No fever, no chills. No weakness. Respiratory: No cough. No shortness of breath. Cardiac: No chest pain, no palpitations. Gastrointestinal: No abdominal pain, no vomiting, no diarrhea. Musculoskeletal: No back pain. No neck pain. Denies other extremity pain. Skin: No rashes. Neurological: No headache. No focal weakness or altered sensation. Past medical history: Rheumatoid arthritis, hypothyroid, asthma, prediabetic, left ankle orthopedic surgery, appendectomy, cholecystectomy, left hip replacement. As above. Social history: Nonsmoker. Here by herself. No alcohol. Physical Exam: General Appearance: Alert, no distress. This patient is responding to questions appropriately and in full sentences. This patient appears well- hydrated and well-nourished. Eyes: Pupils equal and round no pallor or injection. No lid edema, erythema or injection. Left lower extremity exam: The bony aspects of the ankle and foot are nontender on palpation and without deformity. No ecchymosis, no erythema, no edema. The left lower extremity is symmetrical in size in comparison to the right lower extremity. She does have some vague mid calf tenderness. No palpable cords in the popliteal fossa. Negative Angelika sign. The left lower extremity is otherwise neurovascularly intact. Neurological: Motor sensory function is grossly intact. Cranial nerves are normal. Gait is normal. Skin: Warm and dry, no rashes. Musculoskeletal: Neck is supple and nontender. Extremities are symmetrical. All joints range without pain or impingement. Psychiatric: No agitation. No depression. Database: EKG: Imaging: Left lower extremity ultrasound: Significant for a left peroneal vein DVT. Otherwise negative. Results were discussed with staff radiologist Dr. Joe Flores. Procedures: Emergency department course: Patient sent for left lower extremity ultrasound after my initial evaluation. Vital signs reviewed. Afebrile. Moderately hypertensive. 11:55 a.m., discussed results of ultrasound with the patient. Plan will be to start her on Pradaxa for treatment of her left peroneal vein DVT. I will have her follow up with her primary care physician for further management. She is in agreement with this plan. She has a normal creatinine from this year. This medication has worked well for her in the past and is the 1 novel anticoagulant with an antidote at this time. Follow-up was thoroughly reviewed with her. Return to emergency department precautions discussed. She feels comfortable going home. All of her questions were answered. She was discharged in good condition. Differential Diagnosis: The differential diagnosis on this patient includes but is not limited to left lower extremity DVT. Fracture, subluxation, dislocation of the left ankle, cellulitis, acute arthritis unlikely. This represents a partial list of diagnoses considered. These considerations are based on history, physical exam , past history, reassessment and diagnostic testing. Smoking Status: Former smoker Constitutional: Initial Vital Signs Temperature (C) 36.4 C 01/18/17 10:55 Heart Rate 70 01/18/17 10:55 Respiratory Rate 18 01/18/17 10:55 Blood Pressure 171/94 H 01/18/17 10:55 O2 Sat (%) 96 01/18/17 10:55 Allergies/Adverse Reactions: cephalexin [From Keflex] Allergy (Verified 01/18/17 11:04) Home Medications: Medication Instructions Recorded Folic Acid [Folic Acid 1 MG (*)] 3 mg PO DAILY 11/27/13 Pantoprazole Sodium [Protonix 40mg 40 mg PO DAILY 11/27/13 (*)] Ranitidine HCl 150 mg PO BID 11/27/13 metFORMIN HCL [Glucophage 500 mg 500 mg PO BIDMEAL 11/27/13 (*)] Gabapentin [Neurontin 300 MG (*)] 600 mg PO HS 05/10/16 Levothyroxine [Synthroid 100 mcg 100 mcg PO DAILY06 05/10/16 (*)] amLODIPine BESYLATE [Norvasc 5 mg 7.5 mg PO DAILY #45 tab 06/12/16 (*)] ACTEMRA 01/18/17 Dabigatran Etexilate Mesyl 150 mg PO BID #20 cap 01/18/17 [Pradaxa 150 MG (*)] Methotrexate 01/18/17 Medical Decision Making - Diagnostics Imaging Results: Imaging Impressions Extremity Venous Study 01/18/17 10:59 Impression: Left peroneal calf vein DVT. Results called to Dr. Lim at 11:43 am. Departure - Departure Disposition: Home, Routine, Self-Care Clinical Impression: Left leg DVT Condition: Good Instructions: Deep Venous Thrombosis (ED) Additional Instructions: Read and follow provided instructions. Follow-up with your primary care physician in tomorrow or Sunday for re- evaluation and further management of your DVT. You should have your kidney function checked by your primary care physician next week. Take medication as prescribed only. Return to the emergency department for worsening leg pain, leg swelling, shortness of breath, chest pain or other serious concerns. Referrals: Lazara Trujillo MD [Primary Care Provider] - As per Instructions Prescriptions: Dabigatran Etexilate Mesyl [Pradaxa 150 MG (*)] 150 mg PO BID #20 cap
[2017-01-18 12:28] VITALS: BP 144/67; PULSE 61; RESP 16; O2SAT 97
== END 2017-01-18 12:31 | disposition home or self-care (01) ==
LOC: CED 10:48
DX: I82.492 Acute embolism and thrombosis of other specified deep vein of left lower extremity (principal); J45.909 Unspecified asthma, uncomplicated; Z87.891 Personal history of nicotine dependence
CPT/HCPCS: 93971-PO

== ENCOUNTER 2017-05-06 15:20 | Emergency (ER) | payer OTHER ==
[2017-05-06 15:31] VITALS: RESP 18; TEMP 98.2; O2SAT 98
--- NOTE | 2017-05-06 15:46 | EDPHY ---
H & P Time Seen by Provider: 05/06/17 15:32 HPI/ROS: CHIEF COMPLAINT: Right leg pain HISTORY OF PRESENT ILLNESS: Patient diagnosed with a DVT most recently on January 18 and is currently on Pradaxa. She noticed right leg swelling 3 days ago but no known trauma. Mostly behind her knee and does not radiate. Worse with movement or palpation. Symptoms moderate. Not associated with chest pain or shortness of breath or skin changes or fever or chills. REVIEW OF SYSTEMS: Eye: no change in vision ENT: no sore throat Cardiac: no chest pain or syncope Pulmonary: no cough or SOB Abdomen: no vomiting, diarrhea, abdominal pain Musculoskeletal: Patient has ongoing diffuse muscle and joint aches from her arthritis but nothing new. Skin: no rash Neuro: Chronic intermittent headaches no change in the pattern Constitutional: no fever : no urinary symptoms A comprehensive 10 point review of systems is otherwise negative aside from elements mentioned in the history of present illness. PAST MEDICAL HISTORY: Includes rheumatoid and osteoarthritis, hypertension, diabetes, thyroid, cholecystectomy, appendectomy. Multiple orthopedic surgeries , DVT. Social history: Nonsmoker General Appearance: Alert and conversant, cooperative. Eyes: No scleral icterus. ENT, Mouth: Normal mucous membranes. Respiratory: Normal respiratory effort, breath sounds equal, lungs are clear to auscultation. Speaks in full sentences. Cardiovascular: Regular rate and rhythm. Gastrointestinal: Abdomen is soft and non tender. Neurological: Alert and oriented x3. Normally conversant. Face symmetric, normal motor function and sensation in all extremities. No clonus. Toes downgoing. Skin: 5 cm ecchymosis on right lateral thigh, 2 cm ecchymosis on right anterior dey. No redness or lymphangitis. No blisters or eschar. Musculoskeletal: Compartment soft in the right leg. Normal pulse motor and sensory in the right foot. No bony tenderness in the right leg. I can range her knee from full extension to 90 degrees. She has pain to palpation posterior calf and behind the knee. Psychiatric: Not agitated. Emergency Department course/MDM: Patient declined pain medication. Plan for ultrasound to evaluate for hematoma versus Ulrich cyst versus DVT on anticoagulation, although she says she has not missed any doses of her medications. 1645: Negative ultrasound per Tenzin, no DVT or hematoma or Ulrich cyst. 1710: Results discussed, patient does not have hip pain radiate into her thigh , but mainly just knee pain. No peripheral neurologic deficit. She has had sciatica before and feels this is different. Patient is reassured that it does not appear to be acutely dangerous problem. Symptomatic treatment and outpatient follow-up, patient says she has pain medication at home. Smoking Status: Former smoker Constitutional: Initial Vital Signs Temperature (C) 36.8 C 05/06/17 15:28 Heart Rate 77 05/06/17 15:28 Respiratory Rate 18 05/06/17 15:28 Blood Pressure 196/88 H 05/06/17 15:28 O2 Sat (%) 98 05/06/17 15:28 O2 Delivery Mode Room Air Allergies/Adverse Reactions: cephalexin [From Keflex] Allergy (Verified 01/18/17 11:04) Home Medications: Medication Instructions Recorded Folic Acid [Folic Acid 1 MG (*)] 3 mg PO DAILY 11/27/13 Ranitidine HCl 150 mg PO BID 11/27/13 metFORMIN HCL [Glucophage 500 mg 500 mg PO BIDMEAL 11/27/13 (*)] Gabapentin [Neurontin 300 MG (*)] 600 mg PO HS 05/10/16 Levothyroxine [Synthroid 100 mcg 100 mcg PO DAILY06 05/10/16 (*)] amLODIPine BESYLATE [Norvasc 5 mg 7.5 mg PO DAILY #45 tab 06/12/16 (*)] ACTEMRA 01/18/17 Dabigatran Etexilate Mesyl 150 mg PO BID #20 cap 01/18/17 [Pradaxa 150 MG (*)] Methotrexate 01/18/17 Medical Decision Making - Diagnostics Imaging Results: Imaging Impressions Extremity Venous Study 05/06/17 15:43 Impression: No evidence of deep vein thrombosis. Findings discussed with TJ DARBY 05/06/2017 at 16:45. Differential Diagnosis: Differential considered including but not limited to sciatica, other lumbar radiculopathy, DVT, Ulrich cyst, hematoma, compartment syndrome, fracture, infection. Departure - Departure Disposition: Home, Routine, Self-Care Clinical Impression: Pain in right leg Condition: Good Instructions: Leg Pain (ED) Additional Instructions: Continue current medications. Referrals: Lazara Trujillo MD [Primary Care Provider] - As per Instructions
[2017-05-06 17:34] VITALS: BP 152/80; PULSE 75
== END 2017-05-06 17:15 | disposition home or self-care (01) ==
LOC: CED 15:20
DX: M79.604 Pain in right leg (principal); I10 Essential (primary) hypertension; E11.9 Type 2 diabetes mellitus without complications; Z87.891 Personal history of nicotine dependence; Z79.84 Long term (current) use of oral hypoglycemic drugs
CPT/HCPCS: 93971-PO

== ENCOUNTER → 2017-07-25 | Outpatient (CLI) | payer OTHER | LOC: CIMAGING 12:23 | PROVIDERS: ATTEND Internal Medicine | DX: Z12.31 Encounter for screening mammogram for malignant neoplasm of breast (principal); Z80.3 Family history of malignant neoplasm of breast ==

== ENCOUNTER 2017-08-26 08:45 | Emergency (ER) | payer OTHER ==
--- NOTE | 2017-08-26 09:07 | EDPHY ---
H & P Time Seen by Provider: 08/26/17 08:58 HPI/ROS: CHIEF COMPLAINT: Cough HISTORY OF PRESENT ILLNESS: Patient is a 72-year-old female with a history of DVT on Pradaxa who presents emergency department with a cough times a week and half. Patient states it is productive of green sputum. She has felt slightly ill. No body aches. No abdominal pain. No nausea or vomiting. No sick contacts. No recent travel. No antibiotic use. Patient has chronic lower extremity swelling. No new leg pain. Patient states she may need a knee replacement. REVIEW OF SYSTEMS: My complete review of systems is negative except as mentioned in the HPI. Past Medical/Surgical History: Includes DVT, rheumatoid and osteoarthritis, hypertension, diabetes, thyroid disease, cholecystectomy, appendectomy, orthopedic surgeries Social history: The patient quit smoking in 1993 Smoking Status: Former smoker Physical Exam: Vitals noted. O2 saturation 91% on room air GENERAL: No acute distress, alert. Coughing intermittently HEENT: Eyes normal to inspection, normal pharynx, no signs of dehydration. NECK: [No thyromegaly, no lymphadenopathy, supple. RESPIRATORY: Coarse breath sounds bilaterally, no rales, rhonchi or wheezing. No accessory muscle use. No signs of respiratory distress at rest. CVS: Regular rate and rhythm, no rubs, murmurs, or gallops. ABDOMEN: Soft, nontender, nondistended, no organomegaly. BACK: Normal to inspection, no CVA tenderness. SKIN: Normal color, no rash, warm, dry. No pallor. EXTREMITIES: No pedal edema, no calf tenderness, no Homans sign or cords, no joint swelling. NEURO/PSYCH: Alert and oriented x3, normal mood and affect, normal motor sensory exam. Constitutional: Initial Vital Signs Temperature (C) 37.2 C 08/26/17 08:53 Heart Rate 74 08/26/17 08:53 Respiratory Rate 20 08/26/17 08:53 Blood Pressure 165/73 H 08/26/17 08:53 O2 Sat (%) 91 L 08/26/17 08:53 O2 Delivery Mode Room Air Allergies/Adverse Reactions: cephalexin [From Keflex] Allergy (Verified 08/26/17 09:03) sucralfate Allergy (Verified 08/26/17 09:03) Home Medications: Medication Instructions Recorded Folic Acid [Folic Acid 1 MG (*)] 3 mg PO DAILY 11/27/13 Ranitidine HCl 150 mg PO BID 11/27/13 metFORMIN HCL [Glucophage 500 mg 500 mg PO BIDMEAL 11/27/13 (*)] Gabapentin [Neurontin 300 MG (*)] 600 mg PO HS 05/10/16 Levothyroxine [Synthroid 100 mcg 100 mcg PO DAILY06 05/10/16 (*)] amLODIPine BESYLATE [Norvasc 5 mg 7.5 mg PO DAILY #45 tab 06/12/16 (*)] ACTEMRA 01/18/17 Dabigatran Etexilate Mesyl 150 mg PO BID #20 cap 01/18/17 [Pradaxa 150 MG (*)] Methotrexate 01/18/17 Azithromycin 250 mg PO DAILY #4 tablet 08/26/17 Pantoprazole Sodium 08/26/17 Stool Softener 08/26/17 predniSONE 20 mg PO DAILY 4 Days tab 08/26/17 Medical Decision Making - Diagnostics Imaging Results: Imaging Impressions Chest X-Ray 08/26/17 10:03 Impression: Central bronchitis, without pneumonia identified.. ED Course/Re-evaluation: In the emergency department I discussed possible etiologies with the patient. I answered all her questions. A chest x-ray was ordered. Chest x-ray: Please refer the dictated report. I discussed the case with Dr. Gutierrez. Patient has bronchitis. No focal infiltrate. I discussed the results with the patient. I answered all her questions. Patient was given prednisone 60 mg orally to help with her cough. I will treat her for chronic bronchitis. She will be given azithromycin 500 mg orally in the emergency department and a prescription on discharge. She was given warnings prior to leaving. Differential Diagnosis: My differential includes but is not limited to pneumonia, bronchitis, DVT, PE, influenza, viral illness, mass, malignancy Departure - Departure Disposition: Home, Routine, Self-Care Clinical Impression: Bronchitis Condition: Good Instructions: Acute Bronchitis (ED) Additional Instructions: Return with increasing cough, shortness of breath, or any other concerns. Referrals: Angelica Mirza MD [[facility] [place]] - 3-4 days, if not improved Prescriptions: Azithromycin 250 mg PO DAILY #4 tablet predniSONE 20 mg PO DAILY 4 Days tab
[2017-08-26] MEDS ORDERED: AZITHROMYCIN 250 MG TAB PO ONE (10:40)
[2017-08-26] MEDS ORDERED: predniSONE 20 MG TAB PO ONE (10:41)
[2017-08-26 11:02] VITALS: BP 144/77
== END 2017-08-26 11:02 | disposition home or self-care (01) ==
LOC: CED 08:45
DX: J20.9 Acute bronchitis, unspecified (principal); I10 Essential (primary) hypertension; E11.9 Type 2 diabetes mellitus without complications; Z79.84 Long term (current) use of oral hypoglycemic drugs; Z87.891 Personal history of nicotine dependence
CPT/HCPCS: 71046; 99284; J7512

== ENCOUNTER 2017-12-05 09:15 | Inpatient (IN) | payer OTHER ==
[2017-12-07 13:49] LABS: PLATELET COUNT 200 10^3/uL (150-400)
[2017-12-19] MEDS ORDERED: TRANEXAMIC ACID 3,000 MG in NS (SYRINGE) 50 ML IRR ONE (06:00)
[2017-12-19] MEDS ORDERED: ROPIVACAINE 0.2% 80 MG, EPINEPHrine 0.2 MG, KETOROLAC TROMETHAMINE 30 MG in SYRINGE 0 ML IU ONE (06:00)
--- NOTE | 2017-12-19 07:09 | PDHPUP ---
History & Physical Update H&P update statement: This history and physical update is based on an assessment of the patient which was completed after admission or registration (within 24 hours), but prior to the surgery/procedure. H&P update: H&P reviewed & patient examined, no change in patient's condition since H&P completed
[2017-12-19] MEDS ORDERED: TRANEXAMIC ACID 3,000 MG/50 ML BAG IRR ONE (11:12)
--- NOTE | 2017-12-19 12:41 | PDANEPAE ---
ANE History of Present Illness 72 year old female for right total knee arthroplasty. 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 ANE Past Medical History - Cardiovascular History Hx Hypertension: Yes Hx Arrhythmias: No Hx Chest Pain: No Hx Coronary Artery / Peripheral Vascular Disease: No Hx CHF / Valvular Disease: No Hx Palpitations: No Cardiovascular History Comment: HX OF DVT- ON PRADAXA - Pulmonary History Hx COPD: No Hx Asthma/Reactive Airway Disease: No Hx Recent Upper Respiratory Infection: No Hx Oxygen in Use at Home: No Hx Sleep Apnea: Yes Sleep Apnea Screening Result - Last Documented: Positive Pulmonary History Comment: POS DWAYNE - NO CPAP - Neurologic History Hx Cerebrovascular Accident: No Hx Seizures: No Hx Dementia: No - Endocrine History Hx Diabetes: Yes Endocrine History Comment: NIDDM -. HYPOTHYROID - GRAVES - Renal History Hx Renal Disorders: Yes Renal History Comment: UA URGENCY - Liver History Hx Hepatic Disorders: No - Neurological & Psychiatric Hx Hx Neurological and Psychiatric Disorders: Yes Neurological / Psychiatric History Comment: ANXIETY AND DEPRESSION - Cancer History Hx Cancer: No - Congenital Disorder History Hx Congenital Disorders: No - GI History Hx Gastrointestinal Disorders: Yes Gastrointestinal History Comment: ESOPHAGEAL SPASMS MAYBE EVERY 5 MONTHS. REFLUX - Other Health History Other Health History: HEAT INTOLERENCE. FATIQUE. NIGHT SWEATS - Chronic Pain History Chronic Pain: Yes (RA & OA HIP PAIN & KNEES) - Surgical History Prior Surgeries: L HIP ARTHROPLASTY. LT ANKLE ORIF WITH POST HARDWARE REMVL. JIHAN. APPY. TUBAL LIGATION. JIMMY CATARACT. KYPHOPLASTY L-1. THYROID ABLATION ANE Review of Systems Review of Systems: - Exercise capacity Exercise capacity: <4 METS METS (RN): 3 METS ANE Patient History - Allergies Allergies/Adverse Reactions: cephalexin [From Keflex] Allergy (Verified 12/05/17 14:58) Itching sucralfate Allergy (Verified 12/05/17 14:58) Itching - Home Medications Home medications: home medication list seen and reviewed Home Medications: Carboxymethylcellulose 1% [Refresh Celluvisc (*)] 1 drop EACHEYE DAILY PRN 11/28 [Last Taken Unknown] Cetirizine [ZyrTEC 10 mg (*)] 10 mg PO DAILY 11/28/17 [Last Taken 12/19/17 06:00 ] Cholecalciferol Vit D3 [Vitamin D3 2000 units tab (OTC)] 2,000 units PO DAILY [Last Taken 12/05/17] Dabigatran Etexilate Mesyl [Pradaxa 150 MG (*)] 150 mg PO BID 11/28/17 [Last Taken 12/16/17] Docusate Sodium [Colace 100 MG (*)] 200 mg PO HS 11/28/17 [Last Taken 12/18/17 18:00] Folic Acid [Folic Acid 1 MG (*)] 3 mg PO DAILY 11/28/17 [Last Taken 12/12/17] Gabapentin [Neurontin 400 MG (*)] 800 mg PO HS 11/28/17 [Last Taken 12/18/17 20: 00] Levothyroxine [Synthroid 150 mcg (*)] 150 mcg PO DAILY06 11/28/17 [Last Taken 06:00] Methotrexate Sodium [Rheumatrex 2.5 mg (RX)] 7.5 mg PO MONTENEGRO@11/28/17 [Last Taken 12/16/17 18:00] Pantoprazole Sodium [Protonix 40mg (*)] 40 mg PO DAILY 11/28/17 [Last Taken Unknown] Ranitidine HCl [Zantac] 150 mg PO BID 11/28/17 [Last Taken 12/19/17 06:00] amLODIPine BESYLATE [Norvasc 5 mg (*)] 5 mg PO DAILY 11/28/17 [Last Taken 20:00] metFORMIN HCL [Glucophage 500 mg (*)] 500 mg PO BID 11/28/17 [Last Taken ] traMADol [Ultram 50 mg (*)] 50 mg PO DAILY PRN 11/28/17 [Last Taken 12/12/17] - Smoking Hx Smoking Status: Former smoker - Family Anes Hx Family Hx Anesthesia Complications: NEG ANE Labs/Vital Signs - Labs Result Diagrams: 12/07/17 13:15 12/07/17 13:15 - Vital Signs Vital Signs: reviewed preoperatively; see RN documention for details Height: 168.91 cm Weight: 95.254 kg ANE Physical Exam - Airway Neck exam: FROM Mallampati Score: Class 2 Mouth exam: normal dental/mouth exam - Pulmonary Pulmonary: no respiratory distress - Cardiovascular Cardiovascular: regular rate and rhythym - ASA Status ASA Status: III ANE Anesthesia Plan Anesthesia Plan: MAC, spinal Regional Anesthesia: adductor canal FNB Total IV Anesthesia: No
[2017-12-19] MEDS ORDERED: FAMOTIDINE 20 MG TAB PO ONE (12:45)
[2017-12-19] MEDS ORDERED: ceFAZolin 2 GM/DEXTROSE 100 ML IV ONE (12:45)
[2017-12-19] MEDS ORDERED: LR 1,000 ML IV ONE (12:45)
[2017-12-19] MEDS ORDERED: ACETAMINOPHEN 325 MG TAB PO ONE (12:45)
[2017-12-19] MEDS ORDERED: LIDOCAINE 1% 2 ML INJ ID PRN (12:45)
[2017-12-19] MEDS ORDERED: DEXAMETHASONE 4 MG/ML VIAL IVP ONE (12:45)
[2017-12-19] MEDS ORDERED: PROPOFOL/EMULSION 500 MG/50 ML BOTTLE IV ONE ×2 (13:36→14:40)
[2017-12-19] MEDS ORDERED: ONDANSETRON 4 MG/2 ML VIAL ONE (13:40)
[2017-12-19] MEDS ORDERED: DEXAMETHASONE 4 MG/ML VIAL ONE (13:40)
[2017-12-19] MEDS ORDERED: ROPIVACAINE HCL 150 MG/30 ML INJ ONE (13:40)
[2017-12-19] MEDS ORDERED: METOCLOPRAMIDE 10 MG/2 ML VIAL IVP PRN (14:03)
[2017-12-19] MEDS ORDERED: TEMAZEPAM 15 MG CAP PO PRN (14:03)
[2017-12-19] MEDS ORDERED: ONDANSETRON DISINTEGRATING 4 MG TAB PO PRN (14:03)
[2017-12-19] MEDS ORDERED: diphenhydrAMINE 25 MG CAP PO PRN (14:03)
[2017-12-19] MEDS ORDERED: PROMETHAZINE HCL 25 MG/ML INJ IVP PRN (14:03)
[2017-12-19] MEDS ORDERED: MAGNESIUM HYDROXIDE 30 ML UDCUP PO PRN (14:03)
[2017-12-19] MEDS ORDERED: DIPHENOXYLATE/ATROPINE LOMOTIL 1 TAB PO PRN (14:03)
[2017-12-19] MEDS ORDERED: BISACODYL 10 MG SUPP PR PRN (14:03)
[2017-12-19] MEDS ORDERED: ONDANSETRON 4 MG/2 ML VIAL IVP PRN ×2 (14:03→14:27)
[2017-12-19] MEDS ORDERED: PROMETHAZINE HCL 25 MG SUPPR PR PRN (14:03)
[2017-12-19] MEDS ORDERED: LACTULOSE 20 GM/30 ML UDCUP PO PRN (14:03)
[2017-12-19] MEDS ORDERED: CARBOXYMETHYLCELLULOSE 1% 0.4 ML DROPERETTE EACHEYE PRN (14:06)
[2017-12-19] MEDS ORDERED: PHENYLEPHRINE HCL 100 MCG/ML SYR IVP PRN (14:27)
[2017-12-19] MEDS ORDERED: oxyCODONE IR 5 MG TAB PO PRN (14:27)
[2017-12-19] MEDS ORDERED: LR 500 ML IV PRN (14:27)
[2017-12-19] MEDS ORDERED: NALOXONE HCL 0.4 MG/ML INJ IVP PRN (14:27)
[2017-12-19] MEDS ORDERED: fentaNYL 100 MCG/2 ML INJ IVP PRN (14:27)
[2017-12-19] MEDS ORDERED: ACETAMINOPHEN 500 MG TAB PO PRN (14:27)
[2017-12-19] MEDS ORDERED: HYDROmorphONE/DILAUDID 1 MG/ML INJ IVP PRN (14:27)
[2017-12-19] MEDS ORDERED: DEXAMETHASONE 4 MG/ML VIAL IVP PRN (14:27)
[2017-12-19] MEDS ORDERED: LR 1,000 ML IV SCH (14:30)
--- NOTE | 2017-12-19 15:21 | POSTOPPROG ---
Post Op Note Date of Operation: 12/19/17 Surgeon: Grace Neri Spiral Winding Machine Helper: Viola Neri PAc Anesthesiologist: Huan Anesthesia: Spinal Pre-op Diagnosis: R knee djd Post-op Diagnosis: same Indication: pain Procedure: R TKA with robotic assist Findings: djd knee Inf/Abcess present in the surg proc area at time of surgery?: No EBL: 50-100
[2017-12-19] MEDS: ACETAMINOPHEN 325 MG TAB PO SCH ×2 (17:42→23:57)
[2017-12-19] MEDS: CYCLOBENZAPRINE 10 MG TAB PO PRN (17:43)
[2017-12-19] MEDS: oxyCODONE IR 5 MG TAB PO PRN ×2 (17:43→21:19)
--- NOTE | 2017-12-19 17:48 | PDMN ---
Medical Necessity Medical necessity: Pt meets IP criteria per PA & MCG S-700; est los >2 mn s/p R TKA; pt unable to safely return home independently; requiring further monitoring , pain management, therapies & CM consult for dc planning; comorbid advanced age , multiple DVTs, RA, DWAYNE; per H&P & order 12/19/17
--- NOTE | 2017-12-19 18:31 | POSTANESTH ---
Post Anesthetic Evaluation Cardiovascular Status: Normal, Stable, Similar to Pre-Op Cond Respiratory Status: Normal, Stable, Similar to Pre-op Cond. Level of Consciousness/Mental Status: Can Participate in Eval, Alert and Oriented Pain Control: Adequate, Prn Tx Ordered Nausea/Vomiting Control: Adequate, Prn Tx Ordered Complications Possibly Related to Anesthesia: None Noted
[2017-12-19] MEDS: traMADol 50 MG TAB PO PRN (19:23)
[2017-12-19] MEDS ORDERED: FAMOTIDINE 20 MG TAB PO SCH (21:00)
[2017-12-19] MEDS: SENNOSIDES/DOCUSATE SODIUM TAB PO SCH (22:22)
[2017-12-19] MEDS: ceFAZolin 2 GM/DEXTROSE 100 ML IV SCH (22:22)
[2017-12-19] MEDS: metFORMIN HCL 500 MG TAB PO SCH (22:23)
[2017-12-19] MEDS: GABAPENTIN 400 MG CAP PO SCH (22:23)
[2017-12-20] MEDS: oxyCODONE IR 5 MG TAB PO PRN ×6 (00:36→17:28)
[2017-12-20] MEDS: CYCLOBENZAPRINE 10 MG TAB PO PRN ×2 (04:49→12:56)
[2017-12-20] MEDS: LEVOTHYROXINE 150 MCG TAB PO SCH (05:51)
[2017-12-20] MEDS: ACETAMINOPHEN 325 MG TAB PO SCH ×4 (05:51→23:17)
[2017-12-20] MEDS: ceFAZolin 2 GM/DEXTROSE 100 ML IV SCH (05:51)
[2017-12-20] MEDS: FOLIC ACID 1 MG TAB PO SCH (08:14)
[2017-12-20] MEDS: SENNOSIDES/DOCUSATE SODIUM TAB PO SCH ×2 (08:14→20:10)
[2017-12-20] MEDS: DABIGATRAN ETEXILATE MESYL 150 MG CAP PO SCH ×2 (08:15→20:10)
[2017-12-20] MEDS: PANTOPRAZOLE SODIUM 40 MG TAB PO SCH ×2 (08:15→22:51)
[2017-12-20] MEDS: metFORMIN HCL 500 MG TAB PO SCH ×2 (08:15→20:10)
[2017-12-20] MEDS: CETIRIZINE 10 MG TAB PO SCH (08:15)
[2017-12-20] MEDS: amLODIPine BESYLATE 5 MG TAB PO SCH (09:47)
--- NOTE | 2017-12-20 10:39 | ASMTCMCOM ---
CM Note CM Note Notes: Met with pt re; dc poc. She lives alone in a small home, PT/OT recommend SNF. Pt would like referral to go to [facility], she stayed there last year after a hip surgery. DC Plan: SNF Date Signed: 12/20/2017 10:38 AM Electronically Signed By:Brenda Cummings RN
[2017-12-20] MEDS: traMADol 50 MG TAB PO PRN (12:55)
--- NOTE | 2017-12-20 13:39 | SOAPPROG ---
SOAP Progress Note Assessment/Plan: Assessment: Virginie is doing well POD 1 s/p R TKA pain is managed well today VTE ppx : recommend resuming predaxa and aspirin D/c planning: recommend SNF placement when ready Plan: 12/20/17 13:37 Subjective: Virginie is doing well, denies SOB, chest pain and N/V. Objective: Vital Signs Temp Pulse Resp BP Pulse Ox 36.7 C 62 16 150/80 H 95 12/20/17 12:00 12/20/17 12:00 12/20/17 12:00 12/20/17 12:00 12/20/17 12:00 Laboratory Results 12/20/17 04:34 12/07/17 13:15 12/19/17 12/20/17 12/21/17 05:59 05:59 05:59 Intake Total 2090 Output Total 1840 250 Balance 250 -250 RLE: incision dressing is clean and dry, NVI, +pf/df ICD10 Worksheet Patient Problems: Problems Problem Status Onset Primary localized osteoarthritis of right knee Acute Chest pain Acute Chronic Disease Mgmt/Transitional Care Acute
[2017-12-20] MEDS: POLYETHYLENE GLYCOL 3350 17 GM PKT PO PRN (20:10)
[2017-12-20] MEDS: GABAPENTIN 400 MG CAP PO SCH (20:10)
[2017-12-21] MEDS: oxyCODONE IR 5 MG TAB PO PRN ×5 (02:11→21:13)
[2017-12-21] MEDS: CYCLOBENZAPRINE 10 MG TAB PO PRN (02:12)
[2017-12-21] MEDS: LEVOTHYROXINE 150 MCG TAB PO SCH (05:24)
[2017-12-21] MEDS: ACETAMINOPHEN 325 MG TAB PO SCH ×4 (05:24→23:49)
[2017-12-21] MEDS: traMADol 50 MG TAB PO PRN (05:28)
[2017-12-21] MEDS: FOLIC ACID 1 MG TAB PO SCH (08:20)
[2017-12-21] MEDS: SENNOSIDES/DOCUSATE SODIUM TAB PO SCH ×2 (08:20→21:04)
[2017-12-21] MEDS: PANTOPRAZOLE SODIUM 40 MG TAB PO SCH (08:20)
[2017-12-21] MEDS: POLYETHYLENE GLYCOL 3350 17 GM PKT PO PRN (08:20)
[2017-12-21] MEDS: amLODIPine BESYLATE 5 MG TAB PO SCH (08:21)
[2017-12-21] MEDS: CETIRIZINE 10 MG TAB PO SCH (08:21)
[2017-12-21] MEDS: DABIGATRAN ETEXILATE MESYL 150 MG CAP PO SCH ×2 (08:21→21:22)
[2017-12-21] MEDS: metFORMIN HCL 500 MG TAB PO SCH ×2 (08:21→21:05)
--- NOTE | 2017-12-21 08:57 | ASMTCMCOM ---
CM Note CM Note Notes: Patient needs SNF and has chosen [facility] - they are able to accept. Confirmed with Viola Neri that she is okay with this rehab plan. Anticipate d/c on Sunday to [facility]. CM will continue to follow for any further needs. Plan: [facility] Date Signed: 12/21/2017 08:57 AM Electronically Signed By:Yudith Hernández RN
[2017-12-21] MEDS: GABAPENTIN 400 MG CAP PO SCH (21:05)
--- NOTE | 2017-12-21 21:22 | SOAPPROG ---
SOAP Progress Note Assessment/Plan: Assessment: Virginie is doing well POD 2 s/p R TKA pain is managed well today VTE ppx : recommend resuming predaxa and aspirin D/c planning: recommend SNF placement when ready Plan: 12/21/17 21:21 Objective: Vital Signs Temp Pulse Resp BP Pulse Ox 36.6 C 62 14 148/69 H 97 12/21/17 15:34 12/21/17 15:34 12/21/17 15:34 12/21/17 15:34 12/21/17 15:34 Laboratory Results 12/21/17 04:40 12/07/17 13:15 12/20/17 12/21/17 12/22/17 05:59 05:59 05:59 Intake Total 2090 900 1000 Output Total 1840 1400 900 Balance 250 -500 100 ICD10 Worksheet Patient Problems: Problems Problem Status Onset Primary localized osteoarthritis of right knee Acute Chest pain Acute Chronic Disease Mgmt/Transitional Care Acute
[2017-12-22] MEDS: oxyCODONE IR 5 MG TAB PO PRN ×3 (02:51→12:15)
[2017-12-22] MEDS: ACETAMINOPHEN 325 MG TAB PO SCH ×2 (05:31→12:13)
[2017-12-22] MEDS: LEVOTHYROXINE 150 MCG TAB PO SCH (05:31)
[2017-12-22 07:23] VITALS: BP 148/76
[2017-12-22] MEDS: PANTOPRAZOLE SODIUM 40 MG TAB PO SCH (09:12)
[2017-12-22] MEDS: CETIRIZINE 10 MG TAB PO SCH (09:12)
[2017-12-22] MEDS: metFORMIN HCL 500 MG TAB PO SCH (09:13)
[2017-12-22] MEDS: POLYETHYLENE GLYCOL 3350 17 GM PKT PO PRN (09:14)
[2017-12-22] MEDS: SENNOSIDES/DOCUSATE SODIUM TAB PO SCH (09:14)
[2017-12-22] MEDS: amLODIPine BESYLATE 5 MG TAB PO SCH (09:15)
[2017-12-22] MEDS: FOLIC ACID 1 MG TAB PO SCH (09:15)
[2017-12-22] MEDS: DABIGATRAN ETEXILATE MESYL 150 MG CAP PO SCH (09:16)
--- NOTE | 2017-12-22 09:54 | SOAPPROG ---
SOAP Progress Note Assessment/Plan: Assessment: Virginie is doing well POD 3 s/p R TKA pain is managed well today VTE ppx : recommend resuming predaxa D/c planning: recommend SNF placement today anemia: level is expected postop constipation: expected postop due to narcotic pain medications, advised patient to give the medications she has already taken time to work. She can be too aggressive and result in GI pain. Plan: 12/20/17 13:37 12/22/17 09:52 12/22/17 09:53 Subjective: virginie is doing well, resting comfortably. she expresses concerns that she has not had a bowel movement, but reports that she has taken milk of magnesia and miralax as well as prunes Objective: Vital Signs Temp Pulse Resp BP Pulse Ox 36.7 C 70 16 148/76 H 97 12/22/17 07:22 12/22/17 07:22 12/22/17 07:22 12/22/17 07:22 12/22/17 07:22 Laboratory Results 12/21/17 04:40 12/07/17 13:15 12/21/17 12/22/17 12/23/17 05:59 05:59 05:59 Intake Total 900 1300 Output Total 1400 1900 200 Balance -500 -600 -200 RLE: incision dressing is clean and dry, NVI, +pf/df ICD10 Worksheet Patient Problems: Problems Problem Status Onset Primary localized osteoarthritis of right knee Acute Chest pain Acute Chronic Disease [facility]/Transitional Care Acute
--- NOTE | 2017-12-22 09:57 | PDIAF ---
- Diagnosis Diagnosis: s/p R TKA Code Status: Full Code - Medication Management Discharge Medications: Medications to Continue on Transfer Carboxymethylcellulose 1% [Refresh Celluvisc (*)] 1 drop EACHEYE DAILY PRN 11/28 [Last Taken Unknown] Cetirizine [ZyrTEC 10 mg (*)] 10 mg PO DAILY 11/28/17 [Last Taken 12/19/17 06:00 ] Cholecalciferol Vit D3 [Vitamin D3 2000 units tab (OTC)] 2,000 units PO DAILY [Last Taken 12/05/17] Dabigatran Etexilate Mesyl [Pradaxa 150 MG (*)] 150 mg PO BID 11/28/17 [Last Taken 12/16/17] Docusate Sodium [Colace 100 MG (*)] 200 mg PO HS 11/28/17 [Last Taken 12/18/17 18:00] Folic Acid [Folic Acid 1 MG (*)] 3 mg PO DAILY 11/28/17 [Last Taken 12/12/17] Gabapentin [Neurontin 400 MG (*)] 800 mg PO HS 11/28/17 [Last Taken 12/18/17 20: 00] Levothyroxine [Synthroid 150 mcg (*)] 150 mcg PO DAILY06 11/28/17 [Last Taken 06:00] Methotrexate Sodium [Rheumatrex] 7.5 mg PO MONTENEGRO@,11/28/17 [Last Taken 18:00] Pantoprazole Sodium [Protonix 40mg (*)] 40 mg PO DAILY 11/28/17 [Last Taken Unknown] Ranitidine HCl [Zantac] 150 mg PO BID 11/28/17 [Last Taken 12/19/17 06:00] amLODIPine BESYLATE [Norvasc 5 mg (*)] 5 mg PO DAILY 11/28/17 [Last Taken 20:00] metFORMIN HCL [Glucophage 500 mg (*)] 500 mg PO BID 11/28/17 [Last Taken ] traMADol [Ultram 50 mg (*)] 50 mg PO DAILY PRN 11/28/17 [Last Taken 12/12/17] Acetaminophen [Tylenol 325mg (*)] 650 mg PO Q6HRS tab 12/22/17 [Last Taken Unknown] Polyethylene Glycol 3350 [Miralax 17 gm (*)] 17 gm PO DAILY PRN pkt 12/22/17 [ Last Taken Unknown] Sennosides/Docusate Sodium [Senokot-S] 1 - 2 tab PO BID tab 12/22/17 [Last Taken Unknown] celeCOXIB [Celebrex (*)] 200 mg PO DAILY cap 12/22/17 [Last Taken Unknown] oxyCODONE IR [Oxycodone Ir (*)] 5 - 10 mg PO Q3HRS PRN tab 12/22/17 [Last Taken Unknown] Discharge Medications: Refer to the Discharge Home Medication list for PRN reason. - Orders Services needed: Registered Nurse, Physical Therapy, Occupational Therapy Diet Recommendation: no restrictions on diet Diet Texture: Regular Texture Diet Additional Instructions: Joint Protocol-Knee Replacement Follow up with Dr. Irizarry office as scheduled After surgery instructions: You received an adductor canal nerve block yesterday. It alleviates pain for approximately 30 hours. Once the numbness to your anterior dey wears off, your pain will increase. Start taking narcotics even low dose narcotic pain meds as the numbness decreases resume aspirin and predaxa (helps to prevent blood clots) Wear thigh high KYLAH hose on both legs during the daytime for 2 weeks (helps to prevent blood clots and decrease swelling in the surgical leg). It is ok to remove KYLAH hose at night time to give your legs a break. It is common for swelling and bruising to occur in the entire surgical leg even extending to the foot, if concerned call Dr. Manuel office [phone] Elevate the surgical leg with the ankle above the hip several times a day. ~ Ideally anytime you are resting throughout the day. Attempt to keep the knee straight while elevating by placing pillows under the ankle instead of the knee to elevate. This may be painful, so please do as much as tolerated. ~This will help you achieve full knee extension. Use a walker for 7-14 days continue physical therapy Wear an minh wrap on the knee for 3-4 days after surgery, then it is no longer needed Do exercises in the book 2-3 times a day Ice at least 3-5 times a day for 30 minutes each time, if not more often. ~~We also recommend using the ice machine before falling asleep to help with pain If you have further questions that are not addressed here, please look at the information packet handed to you at the preop appointment. ~Most will be answered on the FAQs, after surgery instructions and incision care pages. *IF YOU HAVE A LIFE THREATENING EMERGENCY, CALL 911. FOR NON-LIFE THREATENING ISSUES, PLEASE CALL DR. IRIZARRY OFFICE FIRST. A PHYSICIAN IS FISHERIES DIRECTOR 11/12. Incision/Dressing Care: May shower tomorrow, Incision dressing is waterproof. Do not soak in water, but shower is ok. Keep the incision (deluna) dressing clean and dry. If the incision dressing gets soiled or wet underneath, change dressing to the dressing given to you by the hospital. (deluna dressing will turn black if drainage occurs) Remove incision dressing (deluna one) two weeks after surgery. ~Leave steri strips alone. ~They will fall off on their own. Do not have anyone else remove the incision dressing prior to the stated recommendation (2 weeks after surgery). ~If there are incision concerns, contact Dr. Manuel office. ~(Viola or Dr. Neri may remove earlier if concerns arise) If incision site (deluna dressing) has drainage call Dr. Manuel office, [phone]. ~Viola and Dr. Neri may ask you to come into the office for further evaluation - Follow Up Care Current Providers and Referrals: Viola Neri PA [Physician Toxicologist] - 01/10/18 1:15 pm Cassidy Pham NP [Primary Care Provider] -
--- NOTE | 2017-12-22 10:20 | ASMTDCNOTE ---
Case Management Discharge Discharge Order Complete? Answers: Yes Patient to Obtain Answers: Other Notes: [facility] Medications Transportation Arranged Answers: Other Notes: [facility] per [facility] Transport will Pick (Date 12/22/2017 12:30 PM & Time) Faxed Final Orders Answers: Yes Discharge Comments Notes: Patient discharged to [facility]. Transport arranged by Susan at [facility] ([facility]). TESFAYE Navarro to call report. Date Signed: 12/22/2017 10:20 AM Electronically Signed By:Xuan Merino RN
[2017-12-23] MEDS ORDERED: METHOTREXATE 2.5 MG TAB PO SCH (09:00)
--- NOTE | 2017-12-23 13:06 | ASDISCHSUM ---
Discharge Information Plan Status:SNF Medically Cleared to Leave: Discharge Date:12/22/2017 12:52 PM D/C Disposition:[facility] ADT D/C Disposition:[facility]ison Facility Projected Discharge Date:12/22/2017 11:00 AM Transportation at D/C: Discharge Delay Reason: Follow-Up Date:12/22/2017 11:00 AM Discharge Slot: Final Diagnosis: Placement Information Referral Type:*[facility]/SNF Referral ID:[id number] Provider Name:[facility] Address 1:[address] Address 2: City:[place] Selection Factors: State:[place] Patient Contact Information Contact Name:CAROLYN Relationship:Friend Address: Work Phone: City: [facility] Phone: [facility] Code: Email: Financial Information Financial Class:Medicare Primary Plan Desc:MEDICARE INPATIENT Primary Plan Number:[id number] Secondary Plan Desc:[facility] Secondary Plan Number:[id number] Assessment Information [facility] CM Progress Note CM Note CM Note Notes: Met with pt re; corey medina. She lives alone in a small home, PT/OT recommend SNF. Pt would like referral to go to [facility], she stayed there last year after a hip surgery. DC Plan: SNF Date Signed: 12/20/2017 10:38 AM Electronically Signed By:Brenda uCmmings RN [facility] CM Progress Note CM Note CM Note Notes: Patient needs SNF and has chosen [facility] - they are able to accept. Confirmed with Viola Neri that she is okay with this rehab plan. Anticipate d/c on Sunday to [facility]. CM will continue to follow for any further needs. Plan: [facility] Date Signed: 12/21/2017 08:57 AM Electronically Signed By:Yudith Hernández RN Case Management Discharge Plan Note Case Management Discharge Discharge Order Complete? Answers: Yes Patient to Obtain Answers: Other Notes: [facility] Medications Transportation Arranged Answers: Other Notes: [facility] per [facility] Transport will Pick (Date 12/22/2017 12:30 PM & Time) Faxed Final Orders Answers: Yes Discharge Comments Notes: Patient discharged to [facility]. Transport arranged by Susan at [facility] ([facility]). TESFAYE Navarro to call report. Date Signed: 12/22/2017 10:20 AM Electronically Signed By:Xuan Merino RN Intervention Information
--- NOTE | 2017-12-25 16:01 | GOP ---
[f rep st] OPERATIVE REPORT DATE OF OPERATION: 12/19/2017 SURGEON: Mari Neri MD ASSOCIATE GENETICS PROFESSOR: Viola Neri PA-C. PREOPERATIVE DIAGNOSIS: Right knee osteoarthritis POSTOPERATIVE DIAGNOSIS: Right knee osteoarthritis PROCEDURE PERFORMED: Right total knee replacement with computer navigation, robotic assistance. FINDINGS: ESTIMATED BLOOD LOSS: 30 cc. INDICATIONS: The patient is a 72-year-old female with severe and progressive pain and deformity of the right knee unresponsive to conservative care. The risks and benefits of surgical intervention were explained in detail. DESCRIPTION OF PROCEDURE: The patient was brought to the operative room and placed on the table in the supine position. Spinal anesthesia was induced without difficulty. A pneumatic tourniquet was applied about the right proximal thigh, and the leg was prepped and draped in a sterile fashion. The leg joshi was applied. After exsanguination by elevation the tourniquet was inflated to 200 mmHg. Incision was made anterior medial from the tibial tuberosity 2 cm cm proximal to the superior pole of the patella. Medial parapatellar arthrotomy was carried out from the superior pole of the patella and posteriorly in line with the fibers of the Type II VMO. The medial collateral ligament was elevated and the infrapatellar fat pad was resected. The patella was everted and the articular surface was excised. A 32 mm patellar button was placed. Attention was turned first to the distal aspect of the femur. After exposure of the femur, 2 half pins were placed for fixation of the femoral array. In a similar fashion, 2 pins were placed anteromedial on the tibia for fixation of the tibial array. External land marking and registration of the hip center were performed without difficulty. Internal femoral and tibial registration was carried out without difficulty and the femoral and tibial checkpoints were placed and verified for accuracy. Attention was turned to the femur. The foot print for the size 5 femoral component was cut with the saw using the Usetrace robotic system and verified for accuracy against the CT based plan. In a similar fashion, the saw was used to cut the footprint for the size 5 tibial component using the Usetrace system and verified for accuracy against the CT based plan. The tibial articular surface was excised without difficulty, followed by the intercondylar box cut. The knee was extended and the remnants of the medial and lateral meniscus were excised. The posterior capsule was injected with ropivacaine, epinephrine and Toradol. A size 5 tibial tray was positioned. Trial reduction was then carried out. There was excellent range of motion, alignment, and stability using the 5 x 9 mm polyethylene. All trials were then removed. The joint was thoroughly irrigated and carefully dried. The press-fit components were implanted. The permanent 9 mm polyethylene was placed without difficulty. Orthosensor verisense smart trial was used to confirm balance and rotation. The tourniquet was deflated and all bleeders were coagulated. The wound was thoroughly irrigated and closed using interrupted sutures of 2-0 Vicryl for the joint capsule. The subcu was closed with 3-0 Vicryl and the skin with 4-0 Monocryl. Dermabond and Steri-Strips were applied followed by a compressive dressing. The patient was then moved from the operating room to the recovery room in good condition, having tolerated the procedure well. PATHOLOGY: Severe lateral patellofemoral osteoarthritis. IMPLANTS: Size 5 femur, 32 mm patellar button, size 5 tibia, 5 x 9 mm polyethylene, permanent 9 mm polyethylene press-fit components. /[id number]/MODL MTDD
--- NOTE | 2017-12-28 10:26 | GDS ---
[f rep st] DISCHARGE SUMMARY ADMISSION DIAGNOSIS: Right knee osteoarthritis. DISCHARGE DIAGNOSIS: Right knee osteoarthritis. PROCEDURE: Right total knee arthroplasty. VTE PROPHYLAXIS: Recommend patient resume her Pradaxa. BRIEF DESCRIPTION OF HOSPITAL STAY: Patient was admitted for an elective joint arthroplasty. The pa cisco tolerated the procedure well and has passed physical therapy. The patient was given appropriat e antibiotic prophylaxis and venous thromboembolism prophylaxis. The patient's pain was well control led on oral pain medication, patient was holding down food, and had urinated. Decision was made to d ischarge the patient. The patient was given post-operative prescriptions pre-operatively. PLAN: Follow up as scheduled with Dr. Neri's office in 3 weeks. /[id number]/MODL
== END 2017-12-22 12:52 | DRG 470 ==
LOC: F3E 12-19 12:07 → OBSVTOIN 12-19 14:09 → F3N 12-19 16:50
PROVIDERS: ADMIT Orthopaedic Surgery; ATTEND Orthopaedic Surgery
DX: M17.11 Unilateral primary osteoarthritis, right knee (principal); E78.00 Pure hypercholesterolemia, unspecified; K21.9 Gastro-esophageal reflux disease without esophagitis; G47.33 Obstructive sleep apnea (adult) (pediatric); M06.9 Rheumatoid arthritis, unspecified; I10 Essential (primary) hypertension; E03.9 Hypothyroidism, unspecified; Z86.718 Personal history of other venous thrombosis and embolism
CPT/HCPCS: 97116-GP; 97161-GP; 97165-GO; 97535-GO; G8978-GP-CK; G8979-GP-CI; G8987-GO-CJ; G8988-GO-CI; J0171; J0690; J1100; J1885; J2270; J2405; J2704; J2795

== ENCOUNTER 2018-01-28 18:06 | Emergency (ER) | payer OTHER ==
--- NOTE | 2018-01-28 18:23 | EDPHY ---
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 The patient states that over the weekend she began to have urinary frequency. She denied dysuria or hematuria. She had no flank pain or abdominal pain. She subsequently developed nausea with no vomiting. Patient states she had diarrhea over the past couple weeks but that stopped 4 days ago. She has had no cough or shortness of breath. No reported fever or chills. No joint aches. The patient states her knee surgery is healing well. She has no increased pain or redness at the surgical site. No new leg pain or swelling. Patient states that she is not feeling dizzy. There is no vertigo or room spinning. However she feels more fatigued and weak than normal. Her physical therapist came today and stated that she appeared "off." REVIEW OF SYSTEMS: 10 systems were reveiwed and are negative with the exception of the elements mentioned in the history of present illness. Past Medical/Surgical History: Includes arthritis, blood coughs, hypercholesterolemia, GERD, osteopenia, sleep apnea, thyroid disease Past surgical history: Includes thyroid surgery, orthopedic surgery, gastrointestinal surgery Social history: The patient does not smoke Smoking Status: Former smoker Physical Exam: Vitals noted GENERAL: Well-appearing, in no acute distress, alert. HEENT: Eyes normal to inspection, normal pharynx, no signs of dehydration. NECK: Normal, supple. RESPIRATORY: Clear to auscultation bilaterally, no rales, rhonchi or wheezing. CVS: Regular rate and rhythm, no rubs, murmurs, or gallops. ABDOMEN: Soft, nontender, nondistended, no organomegaly. Benign BACK: Normal to inspection, no CVA tenderness. SKIN: Normal color, no rash, warm, dry. No pallor. EXTREMITIES: The patient's right knee scar is clean dry and intact. There is no surrounding erythema or warmth. No pedal edema, no calf tenderness, no Homans sign or cords, no joint swelling. NEURO/PSYCH: Alert and oriented, normal mood and affect, normal motor sensory exam. No obvious cranial nerve deficit. Constitutional: Initial Vital Signs Temperature (C) 36.3 C 01/28/18 18:19 Heart Rate 63 01/28/18 18:19 Respiratory Rate 16 01/28/18 18:19 Blood Pressure 185/98 H 01/28/18 18:19 O2 Sat (%) 97 01/28/18 18:19 O2 Delivery Mode Room Air Allergies/Adverse Reactions: cephalexin [From Keflex] Allergy (Verified 01/28/18 18:18) Itching sucralfate Allergy (Verified 01/28/18 18:18) Itching Home Medications: Medication Instructions Recorded Carboxymethylcellulose 1% [Refresh 1 drop EACHEYE DAILY PRN 11/28/17 Celluvisc (*)] Cetirizine [ZyrTEC 10 mg (*)] 10 mg PO DAILY 11/28/17 Cholecalciferol Vit D3 [Vitamin D3 2,000 units PO DAILY 11/28/17 2000 units tab (OTC)] Dabigatran Etexilate Mesyl 150 mg PO BID 11/28/17 [Pradaxa 150 MG (*)] Docusate Sodium [Colace 100 MG (*)] 200 mg PO HS 11/28/17 Folic Acid [Folic Acid 1 MG (*)] 3 mg PO DAILY 11/28/17 Gabapentin [Neurontin 400 MG (*)] 800 mg PO HS 11/28/17 Levothyroxine [Synthroid 150 mcg 150 mcg PO DAILY06 11/28/17 (*)] Methotrexate Sodium [Rheumatrex] 7.5 mg PO MONTENEGRO@09,21 11/28/17 Pantoprazole Sodium [Protonix 40mg 40 mg PO DAILY 11/28/17 (*)] Ranitidine HCl [Zantac] 150 mg PO BID 11/28/17 amLODIPine BESYLATE [Norvasc 5 mg 5 mg PO DAILY 11/28/17 (*)] metFORMIN HCL [Glucophage 500 mg 500 mg PO BID 11/28/17 (*)] traMADol [Ultram 50 mg (*)] 50 mg PO DAILY PRN 11/28/17 Acetaminophen [Tylenol 325mg (*)] 650 mg PO Q6HRS tab 12/22/17 Polyethylene Glycol 3350 [Miralax 17 gm PO DAILY PRN pkt 12/22/17 17 gm (*)] Sennosides/Docusate Sodium 1 - 2 tab PO BID tab 12/22/17 [Senokot-S] celeCOXIB [Celebrex (*)] 200 mg PO DAILY cap 12/22/17 oxyCODONE IR [Oxycodone Ir (*)] 5 - 10 mg PO Q3HRS PRN tab 12/22/17 Medical Decision Making ED Course/Re-evaluation: In the emergency department I discussed possible etiologies with the patient. I answered all her questions. IV was placed. Patient was given normal saline 500 mL IV for hydration. Laboratory studies and EKG were ordered. UA negative Patient's chemistry panel is notable for mildly elevated creatinine 1.1. Electrolytes are unremarkable. The patient's CBC is normal. She is not anemic. Troponin is negative. EKG shows normal sinus rhythm, normal rate, normal axis, normal intervals. There are no ST or T-wave abnormalities. EKG is normal as interpreted by me. I rechecked the patient. She was feeling much better after eating. Her friend brought her sandwich which she had in the emergency department. She is not feeling lightheaded or dizzy. She has no chest pain. The patient states she has an appoint with her primary care physician tomorrow. She is given warnings prior to leaving. She will return with worsening symptoms. Differential Diagnosis: My differential includes but is not limited to urinary tract infection, pyelonephritis, bacteremia, sepsis, wound infection, cellulitis, abscess, septic joint, pneumonia, bronchitis, viral illness, small-bowel obstruction, perforation - Data Points Laboratory Results: Laboratory Results 01/28/18 17:40 01/28/18 01/28/18 01/28/18 18:44 18:44 17:40 WBC 4.71 10^3/uL 10^3/uL (3.80-9.50) RBC 4.64 10^6/uL 10^6/uL (4.18-5.33) Hgb 12.3 g/dL L g/dL (12.6-16.3) Hct 38.9 % % (38.0-47.0) MCV 83.8 fL fL (81.5-99.8) MCH 26.5 pg L pg (27.9-34.1) MCHC 31.6 g/dL L g/dL (32.4-36.7) RDW 17.7 % H % (11.5-15.2) Plt Count 193 10^3/uL 10^3/uL (150-400) MPV 10.0 fL fL (8.7-11.7) Neut % (Auto) 51.7 % % (39.3-74.2) Lymph % (Auto) 34.6 % % (15.0-45.0) [place] % (Auto) 10.8 % % (4.5-13.0) Eos % (Auto) 1.9 % % (0.6-7.6) Baso % (Auto) 0.8 % % (0.3-1.7) Nucleat RBC Rel Count 0.0 % % (0.0-0.2) Absolute Neuts (auto) 2.43 10^3/uL 10^3/uL (1.70-6.50) Absolute Lymphs (auto) 1.63 10^3/uL 10^3/uL (1.00-3.00) Absolute Monos (auto) 0.51 10^3/uL 10^3/uL (0.30-0.80) Absolute Eos (auto) 0.09 10^3/uL 10^3/uL (0.03-0.40) Absolute Basos (auto) 0.04 10^3/uL 10^3/uL (0.02-0.10) Absolute Nucleated RBC 0.00 10^3/uL 10^3/uL (0-0.01) Immature Gran % 0.2 % % (0.0-1.1) Immature Gran # 0.01 10^3/uL 10^3/uL (0.00-0.10) POC Sodium 140 mEq/L mEq/L (135-145) POC Potassium 3.6 mEq/L mEq/L (3.3-5.0) POC Chloride 104.0 mEq/L mEq/L (97-110) POC Total CO2 26 mEq/L mEq/L (22-31) POC BUN 15 mg/dL mg/dL (7-23) POC Creatinine 1.1 mg/dL H mg/dL (0.6-1.0) POC Glucose 118 mg/dL H mg/dL (70-100) POC Calcium 9.5 mg/dL mg/dL (8.5-10.4) POC Total Bilirubin 0.7 mg/dL mg/dL (0.1-1.4) POC AST 25 IU/L IU/L (14-46) POC ALT 18 IU/L IU/L (9-52) POC Alk Phosphatase 59 IU/L IU/L (38-126) POC Troponin I 0.01 ng/mL ng/mL (0.00-0.08) POC Total Protein 6.5 g/dL g/dL (6.3-8.2) POC Albumin 3.7 g/dL g/dL (3.5-5.0) Medications Given: Discontinued Medications Sodium Chloride (Ns) 500 mls @ 0 mls/hr IV ONCE ONE PRN Reason: Wide Open Stop: 01/28/18 18:40 Last Admin: 01/28/18 19:19 Dose: 500 mls Point of Care Test Results: Chemistry 01/28/18 01/28/18 18:44 18:44 POC Sodium 140 mEq/L mEq/L (135-145) POC Potassium 3.6 mEq/L mEq/L (3.3-5.0) POC Chloride 104.0 mEq/L mEq/L (97-110) POC Total CO2 26 mEq/L mEq/L (22-31) POC BUN 15 mg/dL mg/dL (7-23) POC Creatinine 1.1 mg/dL H mg/dL (0.6-1.0) POC Glucose 118 mg/dL H mg/dL (70-100) POC Calcium 9.5 mg/dL mg/dL (8.5-10.4) POC Total Bilirubin 0.7 mg/dL mg/dL (0.1-1.4) POC AST 25 IU/L IU/L (14-46) POC ALT 18 IU/L IU/L (9-52) POC Alk Phosphatase 59 IU/L IU/L (38-126) POC Troponin I 0.01 ng/mL ng/mL (0.00-0.08) POC Total Protein 6.5 g/dL g/dL (6.3-8.2) POC Albumin 3.7 g/dL g/dL (3.5-5.0) Urine Dip Collection Date 01/28/18 Collection Time 19:17 Specific [place] (1.002-1.030) 1.015 PH (5.0-7.5) 7.0 Leukocytes (Negative) Negative Nitrites (Negative) Negative Protein (Negative) Negative Glucose (Negative) Negative Ketones (Negative) Negative Urobilnogen (0.2-1.0 EU) 0.2 Bilirubin (Negative) Negative Blood (Negative) Negative Departure - Departure Disposition: Home, Routine, Self-Care Clinical Impression: Nausea Fatigue Qualifiers: Fatigue type: unspecified Qualified Code(s): R53.83 - Other fatigue Condition: Good Instructions: Acute Nausea and Vomiting (ED), Weakness (ED) Additional Instructions: Return with increasing lightheadedness, dizziness, weakness, chest pain or any other concerns. Your tests here were unremarkable. Referrals: Cassidy Pham, [employer] [Primary Care Provider] - 1-2 days without fail
[2018-01-28] MEDS ORDERED: NS 500 ML IV ONE (18:39)
[2018-01-28 19:47] LABS: PLATELET COUNT 193 10^3/uL (150-400)
[2018-01-28 20:18] VITALS: BP 145/98
--- NOTE | 2018-01-28 22:38 | CPEKG ---
Test Reason : OPEN Blood Pressure : / mmHG Vent. Rate : 056 BPM Atrial Rate : 057 BPM P-R Int : 179 ms QRS Dur : 114 ms QT Int : 464 ms P-R-T Axes : 018 -02 047 degrees QTc Int : 448 ms Sinus rhythm Probable left ventricular hypertrophy Confirmed by Ludmila Bustamante ([id number]) on 01/28/2018 10:37:52 PM Referred By: Confirmed By:Ludmila Bustamante
== END 2018-01-28 20:16 | disposition home or self-care (01) ==
LOC: CED 18:06
DX: R53.83 Other fatigue (principal); E86.9 Volume depletion, unspecified; Z86.718 Personal history of other venous thrombosis and embolism
CPT/HCPCS: 80053-PO; 82435-PO; 82565-PO; 82947-PO; 84132-PO; 84295-PO; 84484-PO; 84520-PO; 85014-PO

== ENCOUNTER → 2018-07-29 | Outpatient (CLI) | payer OTHER | LOC: CIMAGING 12:14 | PROVIDERS: ATTEND Nurse Practitioner | DX: Z12.31 Encounter for screening mammogram for malignant neoplasm of breast (principal); Z80.3 Family history of malignant neoplasm of breast ==